=== PATIENT | male | born 1950 | race Caucasian/White ===

== ENCOUNTER 2019-07-01 12:09 | Inpatient (IN) ==
--- NOTE | 2019-07-01 12:26 | Emergency Department Note ---
Disposition Clinical Impression: Multifocal pneumonia Disposition: Admitted As Inpatient Condition: Fair Time of Disposition: 16:07 General Adult HPI - General Chief complaint: ED GI Bleed Stated complaint: Coughing up blood Time Seen by Provider: 07/01/19 12:24 Source: patient Limitations: no limitations Nursing Notes Reviewed: Yes Vital Signs Reviewed: Yes - History of Present Illness HPI Narrative: Mr. Pineda is a 69yo male with a history of COPD, CAD and aortic stenosis that presents from his PCP's office with hemoptysis for 2 days. Patient was found to have a oxygen saturation of 87% while at his PCP's office so he was sent here. Patient states that he has had a productive cough intermittently for the past few weeks that started with white sputum but has progressed to blood the last 24 hours. Patient currently not short of breath but feels pain in his chest with each cough. Patient states that he had PCI 2 weeks ago with plans for another stent in the coming weeks. Since surgery patient has remained on plavix, ASA and Xarelto. No history of car rides, history of DVT/PE, cancer, incarceration or HIV. Patient has home pulse ox and states that he lives between 88-93%. He states that he doesn't feel anymore short of breath than normal and has used his Spiriva, albuterol nubulizers per usual today. Pain Scale: 10 - Related Data Home Medications Medication Instructions Recorded Confirmed Albuterol Sulfate [Proair Hfa] 1 puff IH Q4H PRN 01/28/19 06/08/19 Aspirin [Lo-Dose Aspirin EC] 81 mg PO QAM 01/28/19 06/08/19 Budesonide/Formoterol 160/4.5 2 puff IH BIDR 01/28/19 06/08/19 [Symbicort 160/4.5] Carvedilol [Coreg] 25 mg PO BID 01/28/19 06/08/19 Cholecalciferol (Vitamin D3) 1,000 unit PO QAM 01/28/19 06/08/19 [Vitamin D3] Finasteride [Proscar] 5 mg PO QAM 01/28/19 06/08/19 Folic Acid/Multivit-Min/Lutein 1 each PO QAM 01/28/19 06/08/19 [Adult Multivitamin Gummies] Montelukast [Singulair] 10 mg PO QPM 01/28/19 06/08/19 Nitroglycerin [Nitrostat] 0.4 mg SL Q5MIN 01/28/19 06/08/19 Rivaroxaban [Xarelto] 20 mg PO QPM 01/28/19 06/08/19 Tamsulosin HCl [Flomax] 0.4 mg PO QPM 01/28/19 06/08/19 Tiotropium [place] [Spiriva 2 puff IH QAM 01/28/19 06/08/19 Respimat] Albuterol Neb [Proventil Neb] 2.5 mg IH Q4-6H PRN 06/08/19 06/08/19 Atorvastatin [Lipitor] 60 mg PO QPM 06/08/19 06/08/19 Levothyroxine Sodium 25 mcg PO QAM 06/08/19 06/08/19 Previous Rx's Medication Instructions Recorded Clopidogrel [Plavix] 75 mg PO DAILY #30 tablet 06/08/19 Allergies Allergy/AdvReac Type Severity Reaction Status Date / Time No Known Allergies Allergy Verified 06/07/19 21:00 All systems ED: reviewed and negative except as stated. Review of Systems: As Per HPI Constitutional: Denies: fever, chills Cardiovascular: Reports: chest pain (With cough). Denies: palpitations, dyspnea on exertion Respiratory: Reports: cough, wheezes, hemoptysis. Denies: dyspnea Gastrointestinal: Denies: abdominal pain, nausea, vomiting, diarrhea Genitourinary: Denies: urgency, dysuria Musculoskeletal: Denies: back pain Integumentary: Denies: rash Neurological: Denies: headache, weakness, numbness, paresthesias Endocrine: Denies: fatigue Hematological/Lymphatic: Reports: easy bleeding, easy bruising Past Medical History - Past Medical History Medical history: Reports: atrial fibrillation, COPD, hyperlipidemia, hypertension, myocardial infarction Surgical history: Reports: herniorrhaphy, pacemaker/AICD Psychiatric history: Reports: no psych history - Social History Smoking Status: Former smoker Smokeless Tobacco Status: No Alcohol use: Reports: none Drug use: Reports: none Physical Exam - General Limitations: no limitations General appearance: alert, in no apparent distress - Head Head exam: atraumatic, normocephalic - Eye Eye exam: Present: PERRL, EOMI - ENT ENT exam: mucous membranes moist - Neck Neck exam: Present: normal inspection, full ROM, trachea midline - Chest Chest inspection: Present: normal inspection, symmetric chest wall rise - Respiratory Respiratory exam: Present: wheezes (Patient with diffuse wheezing to the bases bilaterally, a few crackles at the bases bilaterally) - Cardiovascular Cardiovascular exam: Present: regular rate, normal rhythm - Abdominal Exam Abdominal exam: Present: soft, Non-Tender. Absent: tenderness, distention, guarding, rebound - Extremities Exam Extremities exam: Present: normal inspection, full ROM. Absent: tenderness, pedal edema - Expanded Lower Extremity Exam Neurovascular/Tendon exam: Present: normal capillary refill. Absent: pulse deficit, motor deficit, sensory deficit - Neurological Exam Neurological exam: Present: alert, oriented X3 - Psychiatric Psychiatric exam: Present: normal affect - Skin Skin exam: Present: warm, dry, intact, normal color Course Vital Signs Temperature 97.5 F L 07/01/19 12:13 Pulse Rate 78 07/01/19 12:13 Respiratory Rate 18 07/01/19 12:13 Blood Pressure 94/63 07/01/19 12:13 O2 Sat by Pulse Oximetry 91 07/01/19 12:13 Temperature 97.5 F L 07/01/19 12:20 Pulse Rate 71 07/01/19 14:07 Respiratory Rate 20 07/01/19 14:07 Blood Pressure 103/59 07/01/19 14:07 O2 Sat by Pulse Oximetry 95 07/01/19 14:07 Oxygen Delivery Oxygen Delivery Nasal Cannula Medical Decision Making - [facility] Narrative Medical decision making narrative: Patient is a 69-year-old male presenting with cough and hemoptysis. Patient with known history of CAD status post stent [address] Steele, hypertension, hyperlipidemia and COPD. He does wear 2 L of nasal cannula oxygen at night. On initial evaluation, patient was slightly hypoxic on room air at 88%, he was placed on 2 L and has now been satting around 94% while here in the ER. His blood pressure has been relatively stable. He was given a total of 500 mL's of fluid as he has known history of CHF with ICD placement. Given wheezing on examination, initial concern for pneumonia versus COPD exacerbation, patient was given DuoNeb as well as steroids. Following DuoNeb's, patient states that his symptoms have slightly improved but he still feels somewhat tight in his chest. Given concern with multiple risk factors, patient is higher risk for pulmonary edema was up, therefore CTA was performed which shows no sign up on her and was not however does show multifocal airspace disease. Amy sauer was started on vancomycin, Zosyn as well as azithromycin as he has been hospitalized within the past 6 weeks. Laboratory work including CBC, BMP, lactic acid, troponin and BNP were performed and reviewed with patient. BNP is slightly elevated at the 400s, however he has no lower leg swelling. Troponin is within normal limits. EKG shows no acute ischemic changes. Patient will be given at this point in time for multifocal pneumonia as well as increased oxygen requirement. Patient agrees with admission. - Medical Records Medical records reviewed: Yes I reviewed the patient's medical records. - Lab Data Lab results reviewed: Yes I reviewed the patient's lab results. Result diagrams: 07/01/19 12:31 07/01/19 12:31 Lab Results 07/01/19 07/01/19 07/01/19 Range/Units 12:31 12:31 12:31 WBC 7.2 (4.3-11.1) K/mcL RBC 4.53 (4.19-5.50) M/mcL Hgb 12.9 (12.9-16.9) g/dL Hct 40.8 (37.5-50.1) % MCV 90.1 (83.0-100.0) fL MCH 28.5 (28.0-33.3) pg MCHC 31.6 (31.6-35.5) g/dL RDW 14.9 H (11.5-14.5) % Plt Count 165 (140-400) K/mcL MPV 10.3 (9.4-12.4) fL Immature Gran % 0.3 (0-4) % Seg Neutrophils % 73.1 % Lymphocytes % 15.8 % Monocytes % 9.3 % Eosinophils % 1.1 % Basophils % 0.4 % Neutrophils # 5.2 (1.6-8.9) K/mcL Lymphocytes # 1.1 (0.6-4.6) K/mcL Monocytes # 0.7 (0.0-1.3) K/mcL Eosinophils # 0.1 (0.0-0.6) K/mcL Basophils # 0.0 (0.0-0.2) K/mcL PT 28.0 H (9.4-12.1) Seconds INR 2.5 APTT 43.6 H (26.0-36.0) Seconds Sodium 137 (136-145) mEq/L Potassium 4.3 (3.5-5.1) mEq/L Chloride 105 (98-107) mEq/L Carbon Dioxide 24 (23-29) mEq/L BUN 17 (8-23) mg/dL Creatinine 1.24 (0.70-1.30) mg/dL Est GFR ( Amer) > 60 (> 60) Est GFR (Non-Af Amer) 57 L (> 60) BUN/Creatinine Ratio 14 (6-26) Glucose 134 H (70-105) mg/dL Calculated Osmolality 288 (280-300) Lactic Acid (0.5-2.2) mmol/L Calcium 9.2 (8.6-10.3) mg/dL Troponin I < 0.03 (< 0.04) ng/mL B-Natriuretic Peptide (Less than 100) pg/mL Blood Type Antibody Screen 07/01/19 07/01/19 07/01/19 Range/Units 12:31 12:31 12:38 WBC (4.3-11.1) K/mcL RBC (4.19-5.50) M/mcL Hgb (12.9-16.9) g/dL Hct (37.5-50.1) % MCV (83.0-100.0) fL MCH (28.0-33.3) pg MCHC (31.6-35.5) g/dL RDW (11.5-14.5) % Plt Count (140-400) K/mcL MPV (9.4-12.4) fL Immature Gran % (0-4) % Seg Neutrophils % % Lymphocytes % % Monocytes % % Eosinophils % % Basophils % % Neutrophils # (1.6-8.9) K/mcL Lymphocytes # (0.6-4.6) K/mcL Monocytes # (0.0-1.3) K/mcL Eosinophils # (0.0-0.6) K/mcL Basophils # (0.0-0.2) K/mcL PT (9.4-12.1) Seconds INR APTT (26.0-36.0) Seconds Sodium (136-145) mEq/L Potassium (3.5-5.1) mEq/L Chloride (98-107) mEq/L Carbon Dioxide (23-29) mEq/L BUN (8-23) mg/dL Creatinine (0.70-1.30) mg/dL Est GFR ( Amer) (> 60) Est GFR (Non-Af Amer) (> 60) BUN/Creatinine Ratio (6-26) Glucose (70-105) mg/dL Calculated Osmolality (280-300) Lactic Acid 1.7 (0.5-2.2) mmol/L Calcium (8.6-10.3) mg/dL Troponin I (< 0.04) ng/mL B-Natriuretic Peptide 456 H (Less than 100) pg/mL Blood Type B POSITIVE Antibody Screen NEGATIVE - Radiology Data Radiology results reviewed: Yes I reviewed the patient's radiology results. Chest X-Ray 07/01/19 12:47 IMPRESSION: 1. Bibasilar infiltrates, left greater than right, most compatible with pneumonia. 2. Severe emphysema. D/ / Dashawn Kennedy MD / Dashawn Kennedy MD Interpreting Provider: Dashawn Kennedy MD Chest CTA 07/01/19 15:02 IMPRESSION: No gross findings of pulmonary embolism. Patchy multifocal airspace disease, greatest within the left lower lobe, likely reflecting pneumonia. Background emphysema. Trace right pleural effusion. Follow-up to resolution recommended. Atherosclerosis, including coronary artery calcification. D/ / Rodolfo Tucker MD / Rodolfo Tucker MD Interpreting Provider: Rodolfo Tucker MD - EKG Data EKG #1 EKG attestation: Yes I reviewed and interpreted this EKG. EKG results narrative: EKG performed at 2020 ventricular rate of 77, patient with left bundle branch block without ischemic changes, appears unchanged from previous performed in 05/2019
[2019-07-01] MEDS ORDERED: Isovue-370 500 ML BOTTLE IVP ONE (12:30)
[2019-07-01] MEDS ORDERED: Ipratropium/Albuterol Neb 3 ML IH ONE (12:49)
[2019-07-01] MEDS ORDERED: methylPREDNISolone 125 MG/2 ML VIAL IVP ONE (12:50)
[2019-07-01] MEDS ORDERED: 0.9 % Sodium Chloride 500 ML IVC ONE (12:50)
[2019-07-01 13:03] LABS: Basophils % 0.4 %; Eosinophils # 0.1 K/mcL (0.0-0.6); Eosinophils % 1.1 %; Hematocrit 40.8 % (37.5-50.1); Hemoglobin 12.9 g/dL (12.9-16.9); Immature Granulocytes % 0.3 % (0-4); Lymphocytes # 1.1 K/mcL (0.6-4.6); Lymphocytes % 15.8 %; Mean Corpuscular HGB Conc 31.6 g/dL (31.6-35.5); Mean Corpuscular Hemoglobin 28.5 pg (28.0-33.3); Mean Corpuscular Volume 90.1 fL (83.0-100.0); Mean Platelet Volume 10.3 fL (9.4-12.4); Monocytes # 0.7 K/mcL (0.0-1.3); Monocytes % 9.3 %; Neutrophils # 5.2 K/mcL (1.6-8.9); Platelet Count 165 K/mcL (140-400); Red Blood Count 4.53 M/mcL (4.19-5.50); Red Cell Distribution Width 14.9 % (11.5-14.5); Segmented Neutrophils % 73.1 %; White Blood Count 7.2 K/mcL (4.3-11.1)
[2019-07-01 13:08] LABS: INR 2.5
[2019-07-01 13:11] LABS: Activated Partial Thrombo Time 43.6 Seconds (26.0-36.0)
[2019-07-01] MEDS ORDERED: Azithromycin 500 MG in 0.9 % Sodium Chloride 250 ML IVPB ONE (13:34)
[2019-07-01] MEDS ORDERED: Piperacillin/Tazobactam 3.375 GM in 0.9 % Sodium Chloride Mini Bag 100 ML IVPB ONE (13:34)
[2019-07-01 13:37] LABS: Troponin I < 0.03 ng/mL (< 0.04)
--- NOTE | 2019-07-01 14:06 | Electrocardiograph Report ---
[address] [address] Test Date: 2019-07-01 Pat Name: Abel Pineda Department: [id number] Room: Gender: M Center Receptionist: : [id number] Requested By: Sydney Hightower Order Number: [id number] Reading MD: Orlando Mcdonald Measurements Intervals [place] Rate: 77 P: 79 PA: 164 QRS: 71 QRSD: 125 T: -90 QT: 396 QTc: 449 Interpretive Statements Sinus rhythm Left bundle branch block Electronically Signed On 07-01-2019 14:04:11 EDT by Orlando Mcdonald
--- NOTE | 2019-07-01 14:10 | Emergency Department Note ---
Disposition Clinical Impression: Multifocal pneumonia Disposition: Admitted As Inpatient Condition: Fair Time of Disposition: 16:07 General Adult HPI - General Chief complaint: ED GI Bleed Stated complaint: Coughing up blood Time Seen by Provider: 07/01/19 12:24 Source: patient Limitations: no limitations - History of Present Illness Pain Scale: 10 - Related Data Home Medications Medication Instructions Recorded Confirmed Albuterol Sulfate [Proair Hfa] 1 puff IH Q4H PRN 01/28/19 07/01/19 Aspirin [Lo-Dose Aspirin EC] 81 mg PO QAM 01/28/19 07/01/19 Budesonide/Formoterol 160/4.5 2 puff IH BIDR 01/28/19 07/01/19 [Symbicort 160/4.5] Carvedilol [Coreg] 12.5 mg PO BID 01/28/19 07/01/19 Cholecalciferol (Vitamin D3) 1,000 unit PO QAM 01/28/19 07/01/19 [Vitamin D3] Finasteride [Proscar] 5 mg PO QAM 01/28/19 07/01/19 Folic Acid/Multivit-Min/Lutein 1 each PO QAM 01/28/19 07/01/19 [Adult Multivitamin Gummies] Montelukast [Singulair] 10 mg PO QPM 01/28/19 07/01/19 Nitroglycerin [Nitrostat] 0.4 mg SL Q5MIN PRN 01/28/19 07/01/19 Rivaroxaban [Xarelto] 20 mg PO QPM 01/28/19 07/01/19 Tamsulosin HCl [Flomax] 0.4 mg PO QPM 01/28/19 07/01/19 Tiotropium [place] [Spiriva 2 puff IH QAM 01/28/19 07/01/19 Respimat] Albuterol Neb [Proventil Neb] 2.5 mg IH Q4-6H PRN 06/08/19 07/01/19 Atorvastatin [Lipitor] 60 mg PO QPM 06/08/19 07/01/19 Levothyroxine Sodium 25 mcg PO QAM 06/08/19 07/01/19 Previous Rx's Medication Instructions Recorded Clopidogrel [Plavix] 75 mg PO DAILY #30 tablet 06/08/19 Allergies Allergy/AdvReac Type Severity Reaction Status Date / Time No Known Allergies Allergy Verified 06/07/19 21:00 Past Medical History - Past Medical History Medical history: Reports: atrial fibrillation, COPD, hyperlipidemia, hypertension, myocardial infarction Surgical history: Reports: herniorrhaphy, pacemaker/AICD Psychiatric history: Reports: no psych history - Social History Smoking Status: Former smoker Smokeless Tobacco Status: No Alcohol use: Reports: none Drug use: Reports: none Physical Exam - General Limitations: no limitations General appearance: alert Course Vital Signs Temperature 97.5 F L 07/01/19 12:13 Pulse Rate 78 07/01/19 12:13 Respiratory Rate 18 07/01/19 12:13 Blood Pressure 94/63 07/01/19 12:13 O2 Sat by Pulse Oximetry 91 07/01/19 12:13 Temperature 97.5 F L 07/01/19 23:08 Pulse Rate 73 07/01/19 23:08 Respiratory Rate 16 07/01/19 23:08 Blood Pressure 104/62 07/01/19 23:08 O2 Sat by Pulse Oximetry 91 07/01/19 23:08 Oxygen Delivery Oxygen Delivery Nasal Cannula Medical Decision Making - Lab Data Result diagrams: 07/01/19 12:31 07/01/19 12:31 Lab Results 07/01/19 07/01/19 07/01/19 Range/Units 12:31 12:31 12:31 WBC 7.2 (4.3-11.1) K/mcL RBC 4.53 (4.19-5.50) M/mcL Hgb 12.9 (12.9-16.9) g/dL Hct 40.8 (37.5-50.1) % MCV 90.1 (83.0-100.0) fL MCH 28.5 (28.0-33.3) pg MCHC 31.6 (31.6-35.5) g/dL RDW 14.9 H (11.5-14.5) % Plt Count 165 (140-400) K/mcL MPV 10.3 (9.4-12.4) fL Immature Gran % 0.3 (0-4) % Seg Neutrophils % 73.1 % Lymphocytes % 15.8 % Monocytes % 9.3 % Eosinophils % 1.1 % Basophils % 0.4 % Neutrophils # 5.2 (1.6-8.9) K/mcL Lymphocytes # 1.1 (0.6-4.6) K/mcL Monocytes # 0.7 (0.0-1.3) K/mcL Eosinophils # 0.1 (0.0-0.6) K/mcL Basophils # 0.0 (0.0-0.2) K/mcL PT 28.0 H (9.4-12.1) Seconds INR 2.5 APTT 43.6 H (26.0-36.0) Seconds Sodium 137 (136-145) mEq/L Potassium 4.3 (3.5-5.1) mEq/L Chloride 105 (98-107) mEq/L Carbon Dioxide 24 (23-29) mEq/L BUN 17 (8-23) mg/dL Creatinine 1.24 (0.70-1.30) mg/dL Est GFR ( Amer) > 60 (> 60) Est GFR (Non-Af Amer) 57 L (> 60) BUN/Creatinine Ratio 14 (6-26) Glucose 134 H (70-105) mg/dL Calculated Osmolality 288 (280-300) Lactic Acid (0.5-2.2) mmol/L Calcium 9.2 (8.6-10.3) mg/dL Troponin I < 0.03 (< 0.04) ng/mL B-Natriuretic Peptide (Less than 100) pg/mL Blood Type Antibody Screen 07/01/19 07/01/19 07/01/19 Range/Units 12:31 12:31 12:38 WBC (4.3-11.1) K/mcL RBC (4.19-5.50) M/mcL Hgb (12.9-16.9) g/dL Hct (37.5-50.1) % MCV (83.0-100.0) fL MCH (28.0-33.3) pg MCHC (31.6-35.5) g/dL RDW (11.5-14.5) % Plt Count (140-400) K/mcL MPV (9.4-12.4) fL Immature Gran % (0-4) % Seg Neutrophils % % Lymphocytes % % Monocytes % % Eosinophils % % Basophils % % Neutrophils # (1.6-8.9) K/mcL Lymphocytes # (0.6-4.6) K/mcL Monocytes # (0.0-1.3) K/mcL Eosinophils # (0.0-0.6) K/mcL Basophils # (0.0-0.2) K/mcL PT (9.4-12.1) Seconds INR APTT (26.0-36.0) Seconds Sodium (136-145) mEq/L Potassium (3.5-5.1) mEq/L Chloride (98-107) mEq/L Carbon Dioxide (23-29) mEq/L BUN (8-23) mg/dL Creatinine (0.70-1.30) mg/dL Est GFR ( Amer) (> 60) Est GFR (Non-Af Amer) (> 60) BUN/Creatinine Ratio (6-26) Glucose (70-105) mg/dL Calculated Osmolality (280-300) Lactic Acid 1.7 (0.5-2.2) mmol/L Calcium (8.6-10.3) mg/dL Troponin I (< 0.04) ng/mL B-Natriuretic Peptide 456 H (Less than 100) pg/mL Blood Type B POSITIVE Antibody Screen NEGATIVE Attestation Statement - Attestation Attestation: I examined this patient and my medical decision-making was reviewed with the Resident Physician. I agree with the documented findings, disposition and treatment plan as described except to the extent set forth below. Patient 69-year-old gentleman presents to emergency department with chief complaint of cough productive of bloody sputum. Patient states that he has had some increasing shortness of breath and has had a cough that has had blood- tinged sputum. Patient reports that he was seen in his doctor's office and found that he hypoxic and the patient was sent to the emergency department for evaluation. Family patient is awake alert on a nebulizer in the room upon evaluation and patient is saturating 95% while on the nebulizer. Patient has coarse breath sounds bilaterally Chest x-ray shows evidence of infiltrate patient will undergo hemoglobin imaging to evaluate for pulmonary hemorrhage or also pulmonary embolism. Case will discussed with the hospitalist patient be admitted hospital. Patient was started on broad-spectrum antibiotic
[2019-07-01 14:15] LABS: BUN/Creatinine Ratio 14 (6-26); Blood Urea Nitrogen 17 mg/dL (8-23); Calcium 9.2 mg/dL (8.6-10.3); Carbon Dioxide 24 mEq/L (23-29); Chloride 105 mEq/L (98-107); Glucose 134 mg/dL (70-105); Osmolality,Calculated 288 (280-300); Potassium 4.3 mEq/L (3.5-5.1); Sodium 137 mEq/L (136-145); eGFR For African Americans > 60 (> 60); eGFR For Non-African Americans 57 (> 60)
--- NOTE | 2019-07-01 17:57 | Event Note ---
Date of Encounter: 07/01/19 Time of Encounter: 17:30 I examined this patient and my medical decision-making was reviewed with the Resident Physician on 07/01/19. I agree with the documented findings, disposition and treatment plan as described except to the extent set forth below. Mr Pineda is a 69 y/o male with recent cardiac stent and aortic stenosis presented with cough and hemoptysis. He has been found to have CT showing multifocal pneumonia. No fever or chills. No CP. No SOB but oxygen levels dropped earlier. At this time he is feeling more comfortable. Exam Alert. Comfortable. NC. EOMI. Mucus membranes dry. Heart reg - very distant. No wheeze Abd soft and nontender No edema Moves all extremities. No rash. I/P 1. Hemoptysis - most likely related to multifocal pneumonia. Treat symptomatically Pulm consult. NPO midnight if anticipate bronch 2. Multifocal pneumonia - hospitalized recently. Procalcitonin pending. IV abx ordered. Viral versus gram negative 3. CAD s/p stent - hold plavix for a day 4. Parox a fib - hold xarelto for now. 5. Aortic stenosis Further diagnoses and plan as per H&P of this date.
--- NOTE | 2019-07-01 18:38 | Internal Med History&Physical ---
<Jose Francisco Barreto S - Last Filed: 07/01/19 18:32> Date of Encounter: 07/01/19 Time of Encounter: 18:32 Internal Medicine - H&P: HPI Admitted From: Emergency Dept Plans for Post Hospital Care: Home History of present illness: Mr. Pineda is a 69 year old male with a past medical history significant for CAD, VA 2 in the , stent 2 weeks ago, emphysema, BPH, who is being admitted to our service with chief complaint of hemoptysis 2 days He states that he began having dyspnea on Monday, which worsened Monday to include a cough. He states that the cough Monday started to show streaks of red, notes that he was coughing hard enough that he has pain at the inferior border of his ribs. Patient states that Monday, the cough seemed to ease up a bit, but the sputum went from streaked with blood to bright red blood. He report s two episodes of hemoptysis yesterday, and three episodes today, each consisting of more than a teaspoon but less than a tablespoon of bright red bloody sputum. The patient underwent PCI with stent placement 2 weeks ago and was started on Plavix at that time. He reports significantly improvement in his breathing since his most recent stent placement. He was supposed to be scheduled for another s tent placement sometime this week, with eventual plans for TAVR at [facility] to be scheduled after the second stent. He had heart attacks in and , quit smoking after the , He is currently taking aspirin, Plavix and Xarelto. At this time, patient denies any chest pain, dyspnea, dizziness, l ightheadedness, nausea, vomiting, black stool, bloody stool, diarrhea, constipation, numbness/tingling/weakness anywhere, blurry vision, double vision, trouble swallowing or speaking Patient reports ongoing cough productive of grossly red sputum. Past Med Surg Social Fam HX - Past Medical History Medical history: atrial fibrillation, COPD, hyperlipidemia, hypertension, myocardial infarction Additional medical history: actinic keratosis, large squamous cell carcinoma, VA, defibrillator, enlarged prostate, emphysema. Psychiatric history: no psych history - Past Surgical History Surgical History: herniorrhaphy, pacemaker/AICD Additional surgical history: vasectomy, stent - Social History Smoking Status: Former smoker Smokeless Tobacco Status: No Alcohol use: none Drug use: none - Family History Mother Hx Family Cardiac Disorders: Yes (VA) Internal Medicine - H&P: Meds Albuterol Sulfate [Proair Hfa] 2 puff IH Q4H PRN 01/28/19 [History] Aspirin [Lo-Dose Aspirin EC] 81 mg PO QAM 01/28/19 [History] Budesonide/Formoterol 160/4.5 [Symbicort 160/4.5] 2 puff IH BIDR 01/28/19 [History] Cholecalciferol (Vitamin D3) [Vitamin D3] 1,000 unit PO QAM 01/28/19 [History] Finasteride [Proscar] 5 mg PO QAM 01/28/19 [History] Folic Acid/Multivit-Min/Lutein [Adult Multivitamin Gummies] 1 each PO QAM 01/28/19 [History] Montelukast [Singulair] 10 mg PO QPM 01/28/19 [History] Nitroglycerin [Nitrostat] 0.4 mg SL Q5MIN PRN 01/28/19 [History] Rivaroxaban [Xarelto] 20 mg PO QPM 01/28/19 [History] Tamsulosin HCl [Flomax] 0.4 mg PO QPM 01/28/19 [History] Tiotropium [place] [Spiriva Respimat] 2 puff IH QAM 01/28/19 [History] Albuterol Neb [Proventil Neb] 2.5 mg IH Q4-6H PRN 06/08/19 [History] Atorvastatin [Lipitor] 60 mg PO QPM 06/08/19 [History] Clopidogrel [Plavix] 75 mg PO DAILY #30 tablet 06/08/19 [Rx] Levothyroxine Sodium 25 mcg PO QAM 06/08/19 [History] Carvedilol 12.5 mg PO BID 07/02/19 [History] Allergy/AdvReac Type Severity Reaction Status Date / Time No Known Allergies Allergy Verified 06/07/19 21:00 All Systems PM: A 10-system review of systems was performed and is negative for pertinent findings except as documented above in the HPI. Review of systems: Per history of present illness - Constitutional Vitals: Temp Pulse Resp BP Pulse Ox 98.0 F 78 15 100/69 95 07/01/19 17:05 07/01/19 17:05 07/01/19 17:05 07/01/19 17:05 07/01/19 17:05 Exam: Gen: Awake and alert, no acute distress, well-nourished, well kempt, at bedside. both are pleasant and conversive. Head: Normocephalic, atraumatic Eyes: EOMI, no scleral icterus ENT: Mucous membranes moist, no oropharyngeal erythema, significant hallitosis noted. Abd: Soft, nontender to palpation, nondistended, no rebound or guarding. EXT: Grossly intact motor strength in all 4 extremities, no lower extremity edema, no distal cyanosis or pallor Skin: Warm, dry, intact, no rashes or lesions noted Neuro: Cranial nerves II-XII grossly intact, no focal nurologic deficits Psych: normal mood and affect, Answers questions with intact judgement, appropriate insight, and linear thought CV: S1-S2 present, regular at a rate of approximately 80, 1/6 systolic murmur seemingly intermittently present, no rubs or gallops appreciated. Pacemaker/defibrillator in place sub-q inferior to the L clavicle. Pulm: Coarse breath sounds in the R base, Decreased air movement in all other linda. Faint wheezes appreciated at bilateral bases. Hyperpnea without tachypnea, no respiratory distress, very mildly increased work of breathing Internal Med - H&P Results - Labs CBC & Chem 7: 07/01/19 12:31 07/01/19 12:31 Labs: Short CBC 07/01/19 Range/Units 12:31 WBC 7.2 (4.3-11.1) K/mcL Hgb 12.9 (12.9-16.9) g/dL Hct 40.8 (37.5-50.1) % Plt Count 165 (140-400) K/mcL Neutrophils # 5.2 (1.6-8.9) K/mcL BMP 07/01/19 12:31 Sodium 137 Potassium 4.3 Chloride 105 Carbon Dioxide 24 BUN 17 Creatinine 1.24 Glucose 134 H Calcium 9.2 Cardiac Enzymes 07/01/19 Range/Units 12:31 Troponin I < 0.03 (< 0.04) ng/mL - Impressions ITS Impressions Chest X-Ray 07/01/19 12:47 IMPRESSION: 1. Bibasilar infiltrates, left greater than right, most compatible with pneumonia. 2. Severe emphysema. D/ / Dashawn Kennedy MD / Dashawn Kennedy MD Interpreting Provider: Dashawn Kennedy MD Chest CTA 07/01/19 15:02 IMPRESSION: No gross findings of pulmonary embolism. Patchy multifocal airspace disease, greatest within the left lower lobe, likely reflecting pneumonia. Background emphysema. Trace right pleural effusion. Follow-up to resolution recommended. Atherosclerosis, including coronary artery calcification. D/ / Rodolfo Tucker MD / Rodolfo Tucker MD Interpreting Provider: Rodolfo Tucker MD - Assessment and Plan (1) Multifocal pneumonia Current Visit: Yes Status: Acute Assessment and plan: CXR shows increased hazy opacities bilateral bases compared to prior, with severe emhpysema CT chest shows patchy airspace disease bilateral bases, with L>R, Likely pneumon ia, with underlying severe emphysema CTA chest shows no evidence of PE Physical exam findings consistent with Pneumonia with underlying emphysema Patient without elevated white count Procalcitonin elevated at 0.19 BNP elevated at 456, not likely to represent CHF PTT elevated at 43.6, patient on Xarelto at home since 1997 for A-Fib INR elevated at 2.5, NOT taking Coumadin * Given hemoptysis, underlying emphysema, and history of tobacco use, neoplastic process is unlikely, but remains on the Ddx. * Elevated pro-Jairo increases his likelihood of bacterial pneumonia * Robitussin and codeine for cough * Pulmonary consult * Nothing by mouth * Will hold Xarelto * Continue Asa/Plavix, as risk of stent thrombosis is significant. * Continue IV Vancomycin and Zosyn. Pt's PCP: Genoveva Holt in [place] Pt's Real Estate Rental Agent: Harshad Steele (2) CAD (coronary artery disease) Current Visit: No Status: Acute Assessment and plan: Patient is status-post stent placement 2 weeks ago, with other known coronary artery stenoses in need of stenting. Real Estate Rental Agent is Dr Steele Patient is also known to have aortic valve stenosis, TAVR planned in the future. Patient has been taking aspirin since 1990 Patient was started on Plavix 2 weeks ago after stent placement Patient is also taking Xarelto for A. fib * Elevated risk of stent thrombosis, in the context of low volume hemoptysis, makes continuation of aspirin and Plavix necessary at this time * Continue to monitor for increased volume of hemoptysis, consider holding aspir in and Plavix in conjunction with input from pulmonology and cardiology if this were to occur Qualifiers: Coronary Disease-Associated Artery/Lesion type: [place] artery [place] vs. transplanted heart: [place] heart Associated angina: with unstable angina Qualified Code(s): I25.110 - Atherosclerotic heart disease of [place] coronary artery with unstable angina pectoris (3) A-fib Current Visit: Yes Status: Chronic Assessment and plan: Patient is status post pacemaker/defibrillator placement Patient has been stable on xarelto since 1997 Patient also taking Coreg * Given chief complaint of hemoptysis, hold Xarelto * Continue patient's home Coreg Qualifiers: Atrial fibrillation type: chronic Qualified Code(s): I48.2 - Chronic atrial fibrillation - Summary of Assessment and Plan Summary of Assessment and Plan: * Continue aspirin and Plavix * Monitor frequency and volume of hemoptysis * Hold Xarelto, continue Coreg * Robitussin with codeine Q6 PRN for cough * Continue IV vancomycin and Zosyn * 60 mg Solu-Medrol BID * Pulmonology consulted - Time Spent With Patient Total time spent is greater than 50% in coordination of care (as documented) at patient's floor/unit and/or counseling patient: <Bebeto Velasco - Last Filed: 07/02/19 18:45> Date of Encounter: 07/01/19 Internal Medicine - H&P: HPI History of present illness: Mr. Pineda is a 69 year old male All Systems PM: A 10-system review of systems was performed and is negative for pertinent findings except as documented above in the HPI. - Constitutional Vitals: Temp Pulse Resp BP Pulse Ox 98.4 F 79 16 124/77 93 07/02/19 15:05 07/02/19 15:05 07/02/19 15:05 07/02/19 15:05 07/02/19 15:05 Internal Med - H&P Results - Labs CBC & Chem 7: 07/02/19 08:37 09/17/19 08:37 Labs: Short CBC 07/02/19 Range/Units 08:37 WBC 6.9 (4.3-11.1) K/mcL Hgb 12.7 L (12.9-16.9) g/dL Hct 38.4 (37.5-50.1) % Plt Count 176 (140-400) K/mcL Neutrophils # 6.1 (1.6-8.9) K/mcL BMP 07/02/19 08:37 Sodium 137 Potassium 4.0 Chloride 107 Carbon Dioxide 20 L BUN 15 Creatinine 0.85 Glucose 159 H Calcium 8.6 Urine 07/01/19 Range/Units 18:54 Urine Color Yellow (Yellow) Urine Clarity Clear (Clear) Urine pH 6.0 (5.0-8.0) pH Units Ur Specific [place] 1.015 (1.010-1.025) Urine Protein Trace (Neg-Trace) mg/dL Urine Glucose (UA) Normal (Normal) mg/dL - Impressions ITS Impressions Chest X-Ray 07/01/19 12:47 IMPRESSION: 1. Bibasilar infiltrates, left greater than right, most compatible with pneumonia. 2. Severe emphysema. D/ / Dashawn Kennedy MD / Dashawn Kennedy MD Interpreting Provider: Dashawn Kennedy MD Chest CTA 07/01/19 15:02 IMPRESSION: No gross findings of pulmonary embolism. Patchy multifocal airspace disease, greatest within the left lower lobe, likely reflecting pneumonia. Background emphysema. Trace right pleural effusion. Follow-up to resolution recommended. Atherosclerosis, including coronary artery calcification. D/ / Rodolfo Tucker MD / Rodolfo Tucker MD Interpreting Provider: Rodolfo Tucker MD - Assessment and Plan (1) Hemoptysis Current Visit: Yes Status: Acute (2) Pneumonia Current Visit: Yes Status: Suspected Qualifiers: Pneumonia type: aspiration pneumonia Aspiration pneumonia type: unspecified Laterality: unspecified laterality Lung location: unspecified part of lung Qualified Code(s): J69.0 - Pneumonitis due to inhalation of food and vomit (3) A-fib Current Visit: Yes Status: Chronic Qualifiers: Atrial fibrillation type: chronic Qualified Code(s): I48.2 - Chronic atrial fibrillation (4) CAD (coronary artery disease) Current Visit: No Status: Acute Qualifiers: Coronary Disease-Associated Artery/Lesion type: [place] artery [place] vs. transplanted heart: [place] heart Associated angina: without angina Qualified Code(s): I25.10 - Atherosclerotic heart disease of [place] coronary artery without angina pectoris (5) Aortic stenosis Current Visit: No Status: Chronic Qualifiers: Cardiac valve disease etiology: etiology unspecified Qualified Code(s): I35.0 - Nonrheumatic aortic (valve) stenosis - Time Spent With Patient Total time spent is greater than 50% in coordination of care (as documented) at patient's floor/unit and/or counseling patient: - Attending Attestation Please see event note of this date.
[2019-07-01] MEDS ORDERED: GuaiFENesin/Codeine Oral Soln 5 ML UDC PO PRN (18:53)
[2019-07-01 19:47] LABS: Bilirubin,Urine Negative (Negative); Blood,Urine Negative (Negative); Clarity,Urine Clear (Clear); Color,Urine Yellow (Yellow); Glucose,Urine (UA) Normal (Normal); Ketones,Urine Negative (Negative); Leukocyte Esterase,Urine Negative (Negative); Nitrite,Urine Negative (Negative); Protein,Urine Trace mg/dL (Neg-Trace); Specific Gravity,Urine 1.015 (1.010-1.025); Urobilinogen,Urine Normal (Normal)
[2019-07-02] MEDS: methylPREDNISolone 125 MG/2 ML VIAL IVP SCH ×2 (05:48→16:51)
--- NOTE | 2019-07-02 07:56 | Internal Med Progress Note ---
<Kevin Fairchild - Last Filed: 07/02/19 14:04> Hospitalist Progress Note - Encounter Date of Encounter: 07/02/19 Time of Encounter: 07:56 - Subjective Interval History: Mr. Pineda is a 69 y/o M who presented to the ED on 07/02 with hemoptysis and possible pneumonia. He states the coughing has been ongoing since 06/29 and he is coughing up 3-4 bloody sputum samples daily. Currently he states that his pain only occurs when he has "deep coughs" and he produces bloody sputum during these episodes. He describes the pain as sharp and along the bottom border of his ribs, today he had an episode of what he described as heartburn that was relieved after he coughed. He complains of wheezing, coughing, and pain during his coughing spells. Pt. denies SOB, lightheadedness, headache, fever/chills, nausea/vomiting, decreased strength/sensation, palpitations, orthopnea, and no problems with urination/BM. - Exam Vitals: Temp Pulse Resp BP Pulse Ox 97.7 F 73 16 113/69 93 07/02/19 07:35 07/02/19 07:35 07/02/19 07:35 07/02/19 07:35 07/02/19 07:35 Exam: General: AOx3, no acute distress, pleasant affect Head: Atraumatic, normocephalic Skin: Dry and warm, no rash, no lesions. Cardiovascular: Heart sounds faint, S1 & S2, no m/r/g Lungs: B/l wheezing throughout, faint crackles lower left lung, breath sounds decreased throughout Abdomen: distended, non-tender, bowel sounds present Extremities: No edema, muscle strength and sensation intact Neurological: No focal deficits, cooperative with examination Pulses: Intact and regular on all 4 extremities Rest of the physical exam is non contributory. - Assessment and Plan (1) Multifocal pneumonia Current Visit: Yes Status: Acute Assessment and Plan: Patient presented on 07/01 with 4 days of hemoptysis and lower chest pain with coughing. CXR in ED on 07/01 showed bilateral opacities in lung bases with chronic emphysema CT of the chest showed likely pneumonia greater at the left lung base than the right, no evidence of PE. Physical exam findings consistent for pneumonia, patient presented with normal wbc and procalcitonin of 1.9. Pt. is on ASA, Plavix, and Xarelto for multiple heart stents and a.fib, possibly adding to the hemoptysis. Pulmonary evaluation on 07/02 suggested pneumonia likely with hemoptysis due to anticoagulation therapy, pulm will continue to follow patient and perform bronchoscopy if hemoptysis does not improve. Currently on IV Vancomycin and Zosyn for pneumonia, plan to de-escalate antibiotics when cultures return. Robitussin and codine given for cough, patient states much improvement from 07/01. Continue to give ASA and Plavix due to high risk of stent thrombosis, will hold Xarelto. (2) CAD (coronary artery disease) Current Visit: No Status: Acute Assessment and Plan: Patient has PMHx of multiple CA, aortic valve stenosis, and multiple stent placement; follows Dr. Steele at [facility]. Most recent stent placement was 06/07/19 and has more planned in 2 weeks; TAVR placement at [facility] in future. Patient is being treated with ASA, Plavix, and Xarelto for atrial fibrilation. Due to hemoptysis Xarelto will be held, patient continued on ASA and plavix due to high risk of stent thrombosis Pulmonary evaluation on 07/02 suggested monitor patient and perform bronchoscopy if hemoptysis continues. (3) A-fib Current Visit: Yes Status: Chronic Assessment and Plan: Continuation of ASA and Plavix for stent thrombosis prohylaxis. Will hold patients Xarelto due to hemoptysis. Patient will continue home Coreg. - Time Spent with Patient Total time spent is greater than 50% in coordination of care (as documented) at patient's floor/unit and/or counseling patient: Internal Medicine: Result - Labs CBC & Chem 7: 07/02/19 08:37 07/02/19 08:37 Labs: Short CBC 07/01/19 Range/Units 12:31 WBC 7.2 (4.3-11.1) K/mcL Hgb 12.9 (12.9-16.9) g/dL Hct 40.8 (37.5-50.1) % Plt Count 165 (140-400) K/mcL Neutrophils # 5.2 (1.6-8.9) K/mcL BMP 07/01/19 12:31 Sodium 137 Potassium 4.3 Chloride 105 Carbon Dioxide 24 BUN 17 Creatinine 1.24 Glucose 134 H Calcium 9.2 Cardiac Enzymes 07/01/19 Range/Units 12:31 Troponin I < 0.03 (< 0.04) ng/mL Urine 07/01/19 Range/Units 18:54 Urine Color Yellow (Yellow) Urine Clarity Clear (Clear) Urine pH 6.0 (5.0-8.0) pH Units Ur Specific [place] 1.015 (1.010-1.025) Urine Protein Trace (Neg-Trace) mg/dL Urine Glucose (UA) Normal (Normal) mg/dL - ABG Interpretation ABG results: PT/INR, D-dimer PT 28.0 Seconds (9.4-12.1) H 07/01/19 12:31 - Impressions Impressions Chest X-Ray 07/01/19 12:47 IMPRESSION: 1. Bibasilar infiltrates, left greater than right, most compatible with pneumonia. 2. Severe emphysema. D/ / Dashawn Kennedy MD / Dashawn Kennedy MD Interpreting Provider: Dashawn Kennedy MD Chest CTA 07/01/19 15:02 IMPRESSION: No gross findings of pulmonary embolism. Patchy multifocal airspace disease, greatest within the left lower lobe, likely reflecting pneumonia. Background emphysema. Trace right pleural effusion. Follow-up to resolution recommended. Atherosclerosis, including coronary artery calcification. D/ / Rodolfo Tucker MD / Rodolfo Tucker MD Interpreting Provider: Rodolfo Tucker MD Consult Discharge Plan - Plan Referrals: Genoveva Holt, XEROX MACHINE OPERATOR [Primary Care Provider] - <Bebeto Velasco - Last Filed: 07/02/19 17:04> Hospitalist Progress Note - Encounter Date of Encounter: 07/02/19 - Exam Vitals: Temp Pulse Resp BP Pulse Ox 98.4 F 79 16 124/77 93 07/02/19 15:05 07/02/19 15:05 07/02/19 15:05 07/02/19 15:05 09/17/19 15:05 - Assessment and Plan (1) Hemoptysis Current Visit: Yes Status: Acute (2) Pneumonia Current Visit: Yes Status: Suspected (3) A-fib Current Visit: Yes Status: Chronic (4) CAD (coronary artery disease) Current Visit: No Status: Acute (5) Aortic stenosis Current Visit: No Status: Chronic - Time Spent with Patient Total time spent is greater than 50% in coordination of care (as documented) at patient's floor/unit and/or counseling patient: Internal Medicine: Result - Labs CBC & Chem 7: 07/02/19 08:37 07/02/19 08:37 Labs: Short CBC 07/02/19 Range/Units 08:37 WBC 6.9 (4.3-11.1) K/mcL Hgb 12.7 L (12.9-16.9) g/dL Hct 38.4 (37.5-50.1) % Plt Count 176 (140-400) K/mcL Neutrophils # 6.1 (1.6-8.9) K/mcL BMP 07/02/19 08:37 Sodium 137 Potassium 4.0 Chloride 107 Carbon Dioxide 20 L BUN 15 Creatinine 0.85 Glucose 159 H Calcium 8.6 Urine 07/01/19 Range/Units 18:54 Urine Color Yellow (Yellow) Urine Clarity Clear (Clear) Urine pH 6.0 (5.0-8.0) pH Units Ur Specific [place] 1.015 (1.010-1.025) Urine Protein Trace (Neg-Trace) mg/dL Urine Glucose (UA) Normal (Normal) mg/dL - ABG Interpretation ABG results: PT/INR, D-dimer PT 28.0 Seconds (9.4-12.1) H 07/01/19 12:31 - Attending Attestation The history, physical exam, and medical decision making was performed by the medical student either while I was physically present and actively involved or I personally re-performed the exam and medical decision making. I have verified the accuracy of the medical student's documentation with regards to the history, physical exam findings, and medical decision making on 07/02/19. Mr Pineda is currently hospitalized for acute hemoptysis and presumed pneumonia. He remains moderate to high risk due to potential for worsening clinical status. Mr Pineda feels OK. He is still having some dark blood in sputum. No fever or chills. No CP. Less cough today. Exam Alert. Comfortable Mucus membranes dry. EOMI. NC Neck supple Heart reg and not tachy. No wheeze Abd soft. No edema. Moves all extremities. No rash. I/P 1. Hemoptysis - persists but not increasing. NPO midnight. 2. Recent stent - still on Plavix 3. A fib - Xarelto held Further diagnoses and plan as above. <Kevin Fairchild - Last Filed: 07/02/19 14:04> (2) CAD (coronary artery disease) Qualifiers: Coronary Disease-Associated Artery/Lesion type: [place] artery [place] vs. transplanted heart: [place] heart Associated angina: with unstable angina Qualified Code(s): I25.110 - Atherosclerotic heart disease of [place] coronary artery with unstable angina pectoris (3) A-fib Qualifiers: Atrial fibrillation type: chronic Qualified Code(s): I48.2 - Chronic atrial fibrillation <Bebeto Velasco A - Last Filed: 07/02/19 17:04> (2) Pneumonia Qualifiers: Pneumonia type: aspiration pneumonia Aspiration pneumonia type: unspecified Laterality: unspecified laterality Lung location: unspecified part of lung [place] lified Code(s): J69.0 - Pneumonitis due to inhalation of food and vomit (3) A-fib Qualifiers: Atrial fibrillation type: chronic Qualified Code(s): I48.2 - Chronic atrial fibrillation (4) CAD (coronary artery disease) Qualifiers: Coronary Disease-Associated Artery/Lesion type: [place] artery [place] vs. transplanted heart: [place] heart Associated angina: without angina Qualified Code(s): I25.10 - Atherosclerotic heart disease of [place] coronary artery without angina pectoris (5) Aortic stenosis Qualifiers: Cardiac valve disease etiology: etiology unspecified Qualified Code(s): I35.0 - Nonrheumatic aortic (valve) stenosis
[2019-07-02] MEDS: Piperacillin/Tazobactam 3.375 GM in 0.9 % Sodium Chloride Mini Bag 100 ML IVPB SCH ×3 (09:00→23:42)
[2019-07-02] MEDS: Aspirin 81 MG TAB.CHEW PO SCH (09:00)
--- NOTE | 2019-07-02 09:05 | Pulmonology Consult Note ---
<Jostin Arrieta W - Last Filed: 07/02/19 11:15> Date of Encounter: 07/02/19 Medications and Allergies Albuterol Sulfate [Proair Hfa] 2 puff IH Q4H PRN 01/28/19 [History] Aspirin [Lo-Dose Aspirin EC] 81 mg PO QAM 01/28/19 [History] Budesonide/Formoterol 160/4.5 [Symbicort 160/4.5] 2 puff IH BIDR 01/28/19 [History] Cholecalciferol (Vitamin D3) [Vitamin D3] 1,000 unit PO QAM 01/28/19 [History] Finasteride [Proscar] 5 mg PO QAM 01/28/19 [History] Folic Acid/Multivit-Min/Lutein [Adult Multivitamin Gummies] 1 each PO QAM 01/28/19 [History] Montelukast [Singulair] 10 mg PO QPM 01/28/19 [History] Nitroglycerin [Nitrostat] 0.4 mg SL Q5MIN PRN 01/28/19 [History] Rivaroxaban [Xarelto] 20 mg PO QPM 01/28/19 [History] Tamsulosin HCl [Flomax] 0.4 mg PO QPM 01/28/19 [History] Tiotropium [place] [Spiriva Respimat] 2 puff IH QAM 01/28/19 [History] Albuterol Neb [Proventil Neb] 2.5 mg IH Q4-6H PRN 06/08/19 [History] Atorvastatin [Lipitor] 60 mg PO QPM 06/08/19 [History] Clopidogrel [Plavix] 75 mg PO DAILY #30 tablet 06/08/19 [Rx] Levothyroxine Sodium 25 mcg PO QAM 06/08/19 [History] Carvedilol 12.5 mg PO BID 07/02/19 [History] Allergy/AdvReac Type Severity Reaction Status Date / Time No Known Allergies Allergy Verified 06/07/19 21:00 All Systems: The remainder of the systems were reviewed and are negative Physical Examination Vital Signs: Vital Signs, Last 4 Hours Temp Pulse Resp BP Pulse Ox 07/02/19 07:35 97.7 F 73 16 113/69 93 Results - Laboratory Findings CBC and BMP: 07/02/19 08:37 07/02/19 08:37 PT/INR, D-dimer PT 28.0 Seconds (9.4-12.1) H 07/01/19 12:31 Abnormal lab findings: Abnormal lab results Hgb 12.7 g/dL (12.9-16.9) L 07/02/19 08:37 RDW 14.9 % (11.5-14.5) H 07/01/19 12:31 PT 28.0 Seconds (9.4-12.1) H 07/01/19 12:31 APTT 43.6 Seconds (26.0-36.0) H 07/01/19 12:31 Carbon Dioxide 20 mEq/L (23-29) L 07/02/19 08:37 Est GFR (Non-Af Amer) 57 (> 60) L 07/01/19 12:31 Glucose 159 mg/dL (70-105) H 07/02/19 08:37 B-Natriuretic Peptide 456 pg/mL (Less than 100) H 07/01/19 12:31 Procalcitonin 0.19 ng/mL (0.00-0.15) H 07/01/19 17:23 - Microbiology Findings Microbiology Findings: Microbiology, Last 48 Hours 07/01/19 13:52 Blood Culture - Preliminary Peripheral Venipuncture Culture is incubating and being continuously monitored for growth. Final report to follow. 07/01/19 13:52 Blood Culture - Preliminary Peripheral Venipuncture Culture is incubating and being continuously monitored for growth. Final report to follow. - Clinical Findings Intake & Output: Intake & Output 07/01/19 07/02/19 07/02/19 23:59 07:59 15:59 Intake Total 570 / 1420 Output Total 550 / 550 300 / 300 Balance 20 / 870 -300 / -300 Weight 84.9 kg 86.4 kg Consult Discharge Plan - Plan Referrals: Genoveva Holt, ELECTRICAL SIGN WIRER HELPER [Primary Care Provider] - - Attending Attestation I examined this patient and my medical decision-making was reviewed with the Resident Physician. I agree with the documented findings, disposition and treatment plan as described except to the extent set forth below. We independently had [id number] contact with the patient Patient seen and examined at bedside Labs, radiology, chart personally reviewed. Impression/Recs: Minor Hemoptysis PNA COPD with Acute Exacerbation Recent LHC with PCI Chronic Aortic Stenosis I evaluated Mr. Pineda in his room today where he has had a few episodes of teaspoon of dark reddish blood early this morning but nothing since. In total there appears to be about 5 mL of darkish blood mixed with phlegm. He says he is feeling much better since admission to the hospital and this is without oxygen requirement. I suspect that his hemoptysis is secondary to pneumonia based upon a CT scan complicated by the fact that he is on a DOAC and Plavix with underlying structural lung disease from advanced emphysema. He appears to be improving and I would recommend conservative management at this time including IV steroids for the next 24 hours antibiotics cough suppression. If further episodes of hemoptysis we will proceed with bronchoscopy please keep nothing by mouth until I evaluate the patient this afternoon. If situation is improving recommend restarting Plavix given recent PCI and high risk for stent thrombosis. <Caleb Murillo M - Last Filed: 07/02/19 15:38> Date of Encounter: 07/02/19 Time of Encounter: 09:00 Assessment and Plan (1) Pneumonia Current Visit: Yes Status: Acute Patient presents with several day history of progressively worsening cough with increasing sputum production Patient did have recent hospitalization roughly 2 wks ago for stent placement Denies Fevers/Chills, admits to mild dyspnea mostly on exertion and now hemoptysis starting roughly 48 hrs ago Patient was noted to be hypoxic in the ED at 88% on RA, according to patient this is his baseline CTA revealed multifocal airspace disease consistent with diagnosis of PNA Procalcitonin was elevated at 0.19 but WBC normal Plan: -Continue ABX for HAP -NPO midnight for Bronch tomorrow with BAL -F/U blood cultures -Continue cough suppressant and supplement O2 as needed Qualifiers: Aspiration pneumonia type: unspecified Laterality: unspecified laterality Lung location: unspecified part of lung Qualified Code(s): J69.0 - Pneumonitis due to inhalation of food and vomit (2) Hemoptysis Current Visit: Yes Status: Acute Patient does have roughly 48hr history of mild hemoptysis Patient reports 3 episodes of bright red bloody hemoptysis prior to admission Total output today is roughly 10mL of dark red blood mixed with mucous Patient does take DOAC for AFIB and DAPT for recent Stent, these have been held since admission 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, 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 Total smoking history of roughly 35 pack years, quit in 1994 after ND Patient has baseline structural lung disease with Severe COPD and Asthma overlap Last CT Chest performed in December did not reveal evidence of neoplasm Etiology of Hemoptysis likely 2/2 Multifocal PNA as demonstrated on CT Chest 07/01/19 in setting of DAPT/DOAC Less likely neoplastic process but still significant risk given severe emp hasema/Tobacco Abuse/Occupational Exposures Plavix and Xarelto have been held and patient has been made NPO in anticipation of possible bronch Plan: -Will Procede with Bronchoscopy tomorrow -Restart Plavix d/t significant risk for stent thrombosis -continue to hold xarelto at this time -continue cough suppressants -Treat underlying COPD Exacerbation, plan below (3) COPD exacerbation Current Visit: Yes Status: Acute Patient has history of COPD, Severe Appears to be in acute exacerbation Increased sputum production with cough + wheeze on exam Compliant with home inhalers 2L O2 PRN/HS at home Patient does not endorse dyspnea at this time Plan: -Azithromycin for Anti-Inflammatory effect +Atypical coverage -Continue IV steroids for 24 hrs -Supplement O2 as needed -Continue bronchodilators (4) Occupational exposure to air contaminants Current Visit: Yes Status: Acute Agent [place] in addition to 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 Pineda is a 69-year-old male with a past medical history CAD, ND x 2 with recent PCI (2wks ago) and severe COPD who is currently admitted to the hospital for hemoptysis. Pulmonology has been consulted for recommendations regarding further management and possible bronchoscopy. The patient states that he began having dyspnea on 06/28/19 which worsened over the following 24 hours. During that interval time the patient did begin to develop a cough productive of clear sputum that subsequently turned into red tin ged mucus with worsening cough and associated musculoskeletal rib pain secondary to cough. The blood-tinged mucus progressed over the following 24 hours to bright red blood. Patient reported 3 episodes of roughly teaspoon sized bright red bloody sputum on day of admission. Today patient reports roughly 6 episodes of bright red bloody sputum total volume roughly 10 mL. He is currently on DAPT for recent PCI and DOAC for AFIB, which have been stopped since admission. The patient does have a significant history of respiratory disease with pulmonary function test revealing severe COPD with retained bronchodilator response indicating asthma overlap. Patient does use 2L O2 PRN/HS. Additionally, patient does have a remote history of Tobacco Abuse, stopping after his 2nd ND in 1994. 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 The patient does follow with [facility] in the outpatient setting and does receive regular lung cancer screening. Most recent CT Chest was in December and was negative for any identifiable neoplasm/nodule. In the ED, patient was afebrile, HR/RR WNL, BP 94/63. Patient was slightly hypoxic at 88% on RA but stated this is his baseline as he has pulse ox at home and checks regularly. Labs revealed normal white count but elevated procalcitonin, 0.19, and BNP 456. On Exam, patient does exhibit significant bibasilar wheezing. No evidence of peripheral edema. EKG negative for acute changes. CTA negative for PE but does reveal patchy multifocal airspace disease, L>R, with background emphysema and trace R Pleural Effusion. Past Med Surg Social Fam HX - Past Medical History Medical history: atrial fibrillation, COPD, hyperlipidemia, hypertension, myocardial infarction Additional medical history: actinic keratosis, large squamous cell carcinoma, ND, defibrillator, enlarged prostate, emphysema. Psychiatric history: no psych history - Past Surgical History Surgical History: herniorrhaphy, pacemaker/AICD Additional surgical history: vasectomy, stent - Social History Smoking Status: Former smoker Smokeless Tobacco Status: No Alcohol use: none Drug use: none - Family History Mother Hx Family Cardiac Disorders: Yes (ND) All Systems: The remainder of the systems were reviewed and are negative Physical Examination Vital Signs: Vital Signs, Last 4 Hours Temp Pulse Resp BP Pulse Ox 07/02/19 07:35 97.7 F 73 16 113/69 93 Gen: Alert, oriented, NAD, vital stable. Head: atruamatic normocephalic Eyes: anicteric sclera, moist conjunctive, EOMI ENT: Mucous Membranes Moist Neck: no JVD, no lymphadenopathy, trachea midline CV: RRR, no murmurs gallops rubs, distant heart sounds though Resp: Wheezing audible mostly in the bilateral bases, no rales or rhonchi, non- labored breathing, diminished sounds in bilateral upper lobes Ext: no peripheral edema, no rashes, no cyanosis or clubbing Results - Laboratory Findings CBC and BMP: 07/02/19 08:37 07/02/19 08:37 PT/INR, D-dimer PT 28.0 Seconds (9.4-12.1) H 07/01/19 12:31 Abnormal lab findings: Abnormal lab results RDW 14.9 % (11.5-14.5) H 07/01/19 12:31 PT 28.0 Seconds (9.4-12.1) H 07/01/19 12:31 APTT 43.6 Seconds (26.0-36.0) H 07/01/19 12:31 Est GFR (Non-Af Amer) 57 (> 60) L 07/01/19 12:31 Glucose 134 mg/dL (70-105) H 07/01/19 12:31 B-Natriuretic Peptide 456 pg/mL (Less than 100) H 07/01/19 12:31 Procalcitonin 0.19 ng/mL (0.00-0.15) H 07/01/19 17:23 - Microbiology Findings Microbiology Findings: Microbiology, Last 48 Hours 07/01/19 13:52 Blood Culture - Preliminary Peripheral Venipuncture Culture is incubating and being continuously monitored for growth. Final report to follow. 07/01/19 13:52 Blood Culture - Preliminary Peripheral Venipuncture Culture is incubating and being continuously monitor ed for growth. Final report to follow. - Clinical Findings Intake & Output: Intake & Output 07/01/19 07/02/19 07/02/19 23:59 07:59 15:59 Intake Total 570 / 1420 Output Total 550 / 550 300 / 300 Balance 20 870 -300 / -300 Weight 84.9 kg 86.4 kg
[2019-07-02 09:08] LABS: Basophils % 0.1 %; Hematocrit 38.4 % (37.5-50.1); Hemoglobin 12.7 g/dL (12.9-16.9); Immature Granulocytes % 0.3 % (0-4); Lymphocytes # 0.6 K/mcL (0.6-4.6); Lymphocytes % 8.4 %; Mean Corpuscular HGB Conc 33.1 g/dL (31.6-35.5); Mean Corpuscular Hemoglobin 29.3 pg (28.0-33.3); Mean Corpuscular Volume 88.7 fL (83.0-100.0); Mean Platelet Volume 10.3 fL (9.4-12.4); Monocytes # 0.2 K/mcL (0.0-1.3); Monocytes % 2.6 %; Neutrophils # 6.1 K/mcL (1.6-8.9); Platelet Count 176 K/mcL (140-400); Red Blood Count 4.33 M/mcL (4.19-5.50); Red Cell Distribution Width 14.5 % (11.5-14.5); Segmented Neutrophils % 88.6 %; White Blood Count 6.9 K/mcL (4.3-11.1)
[2019-07-02 09:28] LABS: BUN/Creatinine Ratio 18 (6-26); Blood Urea Nitrogen 15 mg/dL (8-23); Calcium 8.6 mg/dL (8.6-10.3); Carbon Dioxide 20 mEq/L (23-29); Chloride 107 mEq/L (98-107); Glucose 159 mg/dL (70-105); Osmolality,Calculated 288 (280-300); Sodium 137 mEq/L (136-145); eGFR For African Americans > 60 (> 60); eGFR For Non-African Americans > 60 (> 60)
[2019-07-03 03:09] LABS: Hematocrit 37.4 % (37.5-50.1); Hemoglobin 12.1 g/dL (12.9-16.9)
[2019-07-03] MEDS: methylPREDNISolone 125 MG/2 ML VIAL IVP SCH ×2 (05:05→18:03)
--- NOTE | 2019-07-03 08:26 | Internal Med Progress Note ---
<LiliyaMonica M - Last Filed: 07/03/19 14:23> Hospitalist Progress Note - Encounter Date of Encounter: 07/03/19 - Exam Vitals: Temp Pulse Resp BP Pulse Ox 97.9 F 87 18 123/90 90 07/03/19 12:45 07/03/19 12:45 07/03/19 12:45 07/03/19 12:45 07/03/19 12:45 - Assessment and Plan (1) Hemoptysis Current Visit: Yes Status: Acute (2) Pneumonia Current Visit: Yes Status: Suspected (3) A-fib Current Visit: Yes Status: Chronic (4) CAD (coronary artery disease) Current Visit: No Status: Acute (5) Aortic stenosis Current Visit: No Status: Chronic - Time Spent with Patient Total time spent is greater than 50% in coordination of care (as documented) at patient's floor/unit and/or counseling patient: Internal Medicine: Result - Labs CBC & Chem 7: 07/03/19 02:09 07/02/19 08:37 Labs: Short CBC 07/03/19 Range/Units 02:09 Hgb 12.1 L (12.9-16.9) g/dL Hct 37.4 L (37.5-50.1) % - ABG Interpretation ABG results: PT/INR, D-dimer PT 28.0 Seconds (9.4-12.1) H 07/01/19 12:31 Consult Discharge Plan - Plan Referrals: Genoveva Holt, SAMPLE CARRIER [Primary Care Provider] - - Attending Attestation I examined this patient and my medical decision-making was reviewed with the Resident Physician Dr Barreto. I agree with the documented findings, disposition and treatment plan as described except to the extent set forth below. Mr Mooney is admitted with multi focal pna and hemoptysis awake, family at bedside, hemoptysis significantly reduced thus far this m orning, + cough, denies sob, fevers or chills. no chest pain. + bm last night, normal, mild abd distension today and increased flatus, no abd pain, n/v gen- alert, awake,appears stated age cv- reg rate and rhythm, normal s1,s2, no pitting le edema lungs- poor aeration throughout, worst at bases, + faint exp wheezing, norm resp effort on o2 nc abd- soft, non tender, + midly distended, + bs neuro- AAOx3 Heomptysis likely 2/2 multifocal pna, on AC and DAPT- appears improved, cont DAPT, AC challenge, appreciate pulm input Multifocal pna and COPDE- IV steroids, IV abx, nebs Afib, currently NSR- Xarelto held, AC challenge with hep gtt and observe further dx and plan as noted by resident <Jose Francisco Barreto S - Last Filed: 07/03/19 19:29> Hospitalist Progress Note - Encounter Date of Encounter: 07/03/19 Time of Encounter: 08:25 - Subjective Interval History: Mr Pineda is a pleasant 69 yo male admitted to our service for pneumonia and hemoptysis. He reports feeling much better than at admission. He reports only mild shortness of breath, and states that his hemoptysis is significantly improved. A sputum sample present on his bedside table shows clear phlegm with moderate streaking of brownish red blood, which both the patient and medical student state is significantly improved from yesterday. I told the patient that he appeared to be struggling to breathe slightly more than when I saw him Monday. The patient reports he feels better than Monday, however the present in the room also agrees that he appears to be working harder to breathe He denies chest pain, palpitations, nausea, vomiting, abdominal pain, numbness/tingling/weakness anywhere, any other new problems or complaints. - Exam Vitals: Temp Pulse Resp BP Pulse Ox 98.1 F 73 15 135/82 94 07/03/19 06:33 07/03/19 06:33 07/03/19 06:33 07/03/19 06:33 07/03/19 06:33 Exam: Gen: Awake and alert, no acute distress, well-nourished, well kempt. Nasal cannula in place Head: Normocephalic, atraumatic Eyes: EOMI, no scleral icterus ENT: Mucous membranes moist, no oropharyngeal erythema CV: heart sounds distant, pulses irregularly irregular at approximate rate of 70, no murmurs rubs or gallops appreciated Abd: Soft, nontender to palpation, nondistended, no rebound or guarding. EXT: Grossly intact motor strength in all 4 extremities, no lower extremity edema, no distal cyanosis or pallor Skin: Warm, dry, intact, no rashes or lesions noted Neuro: Cranial nerves II-XII grossly intact, no focal neurologic deficits Psych: normal mood and affect, Answers questions with intact judgment, appropriate insight, and linear thought Pulm: mild wheezing throughout, Hyperpnea without tachypnea present, mildly increased work of breathing with small amount of accessory muscle use compared to my exam on 07/01. No coughing while I was present - Assessment and Plan (1) Multifocal pneumonia Current Visit: Yes Status: Acute Assessment and Plan: Pulmonology's assessment and recommendations of this time are against bronchoscopy Ongoing hemoptysis likely does not represent an active bleed * Anticoagulation trial with heparin GTT * Continue IV steroids Patient subjectively feeling much better Hemoptysis improving * On review of records, it was noted that the patient's home inhalers were not continued. Orders were put in to continue his Symbicort and Singulair * Scheduled and PRN duo nebs ordered * Holding the patient's home Spiriva, as patient being treated with ipratropium in duo nebs * Continue IV vancomycin and Zosyn * Continue oxygen by nasal cannula * Reassess goals for discharge and plans to meet those goals following tomorrow's assessment (2) CAD (coronary artery disease) Current Visit: Yes Status: Chronic Assessment and Plan: Patient rinse chest pain-free at this time * Recent history of PCI with stenting necessitates continuing aspirin and Plavix * Continue to monitor, especially for symptomatic tachycardia given frequency of nebulizer treatments (3) A-fib Current Visit: Yes Status: Chronic Assessment and Plan: Patient irregularly irregular on exam Denies any subjective palpitations * Xarelto being held pending anticoagulation trial today * Continue Coreg DVT Prophylaxis: Aspirin/Plavix/heparin GTT - Summary of Assessment and Plan Summary of Assessment and Plan: * No bronch per pulm * Anticoagulation trial today with heparin GTT * Continue IV ABX * Duo nebs scheduled and when necessary * Home COPD meds * Continue aspirin and Plavix - Time Spent with Patient Total time spent is greater than 50% in coordination of care (as documented) at patient's floor/unit and/or counseling patient: Internal Medicine: Result - Labs CBC & Chem 7: 07/03/19 14:02 07/02/19 08:37 Labs: Short CBC 07/02/19 07/03/19 Range/Units 08:37 02:09 WBC 6.9 (4.3-11.1) K/mcL Hgb 12.7 L 12.1 L (12.9-16.9) g/dL Hct 38.4 37.4 L (37.5-50.1) % Plt Count 176 (140-400) K/mcL Neutrophils # 6.1 (1.6-8.9) K/mcL BMP 07/02/19 08:37 Sodium 137 Potassium 4.0 Chloride 107 Carbon Dioxide 20 L BUN 15 Creatinine 0.85 Glucose 159 H Calcium 8.6 - ABG Interpretation ABG results: PT/INR, D-dimer PT 28.0 Seconds (9.4-12.1) H 07/01/19 12:31 <Monica Lovell M - Last Filed: 07/03/19 14:23> (2) Pneumonia Qualifiers: Pneumonia type: aspiration pneumonia Aspiration pneumonia type: unspecified Laterality: unspecified laterality Lung location: unspecified part of lung Qualified Code(s): J69.0 - Pneumonitis due to inhalation of food and vomit (3) A-fib Qualifiers: Atrial fibrillation type: chronic Qualified Code(s): I48.2 - Chronic atrial fibrillation (4) CAD (coronary artery disease) Qualifiers: Coronary Disease-Associated Artery/Lesion type: [place] artery [place] vs. transplanted heart: [place] heart Associated angina: without angina Qualified Code(s): I25.10 - Atherosclerotic heart disease of [place] coronary artery without angina pectoris (5) Aortic stenosis Qualifiers: Cardiac valve disease etiology: etiology unspecified Qualified Code(s): I35.0 - Nonrheumatic aortic (valve) stenosis <Jose Francisco Barreto S - Last Filed: 07/03/19 19:29> (2) CAD (coronary artery disease) Qualifiers: Coronary Disease-Associated Artery/Lesion type: [place] artery [place] vs. transplanted heart: [place] heart Associated angina: without angina Qualified Code(s): I25.10 - Atherosclerotic heart disease of [place] coronary artery without angina pectoris (3) A-fib Qualifiers: Atrial fibrillation type: chronic Qualified Code(s): I48.2 - Chronic atrial fibrillation
[2019-07-03] MEDS: Piperacillin/Tazobactam 3.375 GM in 0.9 % Sodium Chloride Mini Bag 100 ML IVPB SCH ×2 (08:59→18:04)
[2019-07-03] MEDS: Aspirin 81 MG TAB.CHEW PO SCH (09:39)
[2019-07-03] MEDS ORDERED: Ipratropium/Albuterol Neb 3 ML IH PRN (13:28)
[2019-07-03] MEDS ORDERED: Heparin 25,000 UNIT/250 ML D5W 25,000 UNIT/250 ML IV.SOLN IVC SCH (13:30)
--- NOTE | 2019-07-03 13:30 | Pulmonology Progress Note ---
<ChidiCaleb M - Last Filed: 07/03/19 13:43> Date of Encounter: 07/03/19 Time of Encounter: 09:00 Assessment and Plan (1) Pneumonia Current Visit: Yes Status: Suspected Patient presents with several day history of progressively worsening cough with increasing sputum production Patient did have recent hospitalization roughly 2 wks ago for stent placement Denies Fevers/Chills, admits to mild dyspnea mostly on exertion and now hemoptys is starting roughly 48 hrs ago Patient was noted to be hypoxic in the ED at 88% on RA, according to patient this is his baseline CTA revealed multifocal airspace disease consistent with diagnosis of PNA Procalcitonin was elevated at 0.19 but WBC normal Hemoptysis clearing up, bronchoscopy not necessary at this time Plan: -Continue ABX for HAP -F/U blood cultures -Continue cough suppressant and supplement O2 as needed Qualifiers: Pneumonia type: aspiration pneumonia Aspiration pneumonia type: unspecified Laterality: unspecified laterality Lung location: unspecified part of lung Qualified Code(s): J69.0 - Pneumonitis due to inhalation of food and vomit (2) Hemoptysis Current Visit: Yes Status: Acute Patient does have roughly 48hr history of mild hemoptysis Patient reports 3 episodes of bright red bloody hemoptysis prior to admission Total output today is roughly 10mL of dark red blood mixed with mucous Patient does take DOAC for AFIB and DAPT for recent Stent, these have been held since admission 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, 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 Total smoking history of roughly 35 pack years, quit in 1994 after [place] Patient has baseline structural lung disease with Severe COPD and Asthma overlap Last CT Chest performed in December did not reveal evidence of neoplasm Etiology of Hemoptysis likely 2/2 Multifocal PNA as demonstrated on CT Chest 07/01/19 in setting of DAPT/DOAC Less likely neoplastic process but still significant risk given severe emphasema/Tobacco Abuse/Occupational Exposures Plavix and Xarelto were held 2/2 hemoptysis and in anticipation of Bronch Hemoptysis clearing up currently Plan: -Will continue to monitor for worsening hemoptysis -Bronchoscopy not currently indicated, decreasing hemoptysis observed today -Restart Plavix d/t significant risk for stent thrombosis -Recommend challenge with either Heparin gtt or restarting Xarelto while still inpatient to observe for recurrence of bleed -continue cough suppressants -Treat underlying COPD Exacerbation, plan below (3) COPD exacerbation Current Visit: Yes Status: Acute Patient has history of COPD, Severe Appears to be in acute exacerbation Increased sputum production with cough + wheeze on exam Compliant with home inhalers 2L O2 PRN/HS at home Patient does not endorse dyspnea at this time Wheeze no better on exam today Plan: -Azithromycin for Anti-Inflammatory effect +Atypical coverage -Continue IV steroids for 24 hrs -Supplement O2 as needed -Continue bronchodilators (4) Occupational exposure to air contaminants Current Visit: Yes Status: Acute Agent [place] in addition to 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 No new complaints. No events overnight. Patient reports improvement in his hemoptysis. Has had about 10ml sputum collected since yesterday afternoon, less bloody component more normal appearing clear mucous. Denies any dyspnea or worsening wheeze. No CP/Fever/Chills. Objective PUL Vital signs: Last Vital Signs Temp 97.9 F 07/03/19 12:45 Pulse 87 07/03/19 12:45 Resp 18 07/03/19 12:45 BP 123/90 07/03/19 12:45 Pulse Ox 90 07/03/19 12:45 Gen: Alert, oriented, NAD, vital stable. Head: atruamatic normocephalic Eyes: anicteric sclera, moist conjunctive, EOMI ENT: Mucous Membranes Moist Neck: no JVD, no lymphadenopathy, trachea midline CV: RRR, no murmurs gallops rubs, distant heart sounds though Resp: Wheezing audible mostly in the bilateral bases, no rales or rhonchi, non- labored breathing, diminished sounds in bilateral upper lobes Ext: no peripheral edema, no rashes, no cyanosis or clubbing Results - Laboratory Findings CBC and BMP: 07/03/19 02:09 07/02/19 08:37 PT/INR, D-dimer PT 28.0 Seconds (9.4-12.1) H 07/01/19 12:31 Abnormal lab findings: Abnormal lab results Hgb 12.1 g/dL (12.9-16.9) L 07/03/19 02:09 Hct 37.4 % (37.5-50.1) L 07/03/19 02:09 RDW 14.9 % (11.5-14.5) H 07/01/19 12:31 PT 28.0 Seconds (9.4-12.1) H 07/01/19 12:31 APTT 43.6 Seconds (26.0-36.0) H 07/01/19 12:31 Carbon Dioxide 20 mEq/L (23-29) L 07/02/19 08:37 Est GFR (Non-Af Amer) 57 (> 60) L 07/01/19 12:31 Glucose 159 mg/dL (70-105) H 07/02/19 08:37 B-Natriuretic Peptide 456 pg/mL (Less than 100) H 07/01/19 12:31 Procalcitonin 0.19 ng/mL (0.00-0.15) H 07/01/19 17:23 - Microbiology Findings Microbiology Findings: Microbiology, Last 48 Hours 07/01/19 13:52 Blood Culture - Preliminary Peripheral Venipuncture Culture is incubating and being continuously monitored for growth. Final report to follow. 07/01/19 13:52 Blood Culture - Preliminary Peripheral Venipuncture Culture is incubating and being continuously monitored for growth. Final report to follow. - Clinical Findings Intake & Output: Intake & Output 07/02/19 07/03/19 07/03/19 23:59 07:59 15:59 Intake Total 350 / 450 100 / 100 Balance 350 / -50 100 / 100 Weight 86.6 kg Consult Discharge Plan - Plan Referrals: Genoveva Holt, MECHANICAL OPERATOR [Primary Care Provider] - <Jostin Arrieta - Last Filed: 07/03/19 17:10> Date of Encounter: 07/03/19 Objective PUL Vital signs: Last Vital Signs Temp 98.1 F 07/03/19 15:36 Pulse 72 07/03/19 15:36 Resp 16 07/03/19 15:36 BP 118/78 07/03/19 15:36 Pulse Ox 93 07/03/19 15:36 Results - Laboratory Findings CBC and BMP: 07/03/19 14:02 07/02/19 08:37 PT/INR, D-dimer PT 13.0 Seconds (9.4-12.1) H D 07/03/19 14:02 Abnormal lab findings: Abnormal lab results Hgb 12.1 g/dL (12.9-16.9) L 07/03/19 02:09 Hct 37.4 % (37.5-50.1) L 07/03/19 02:09 RDW 14.8 % (11.5-14.5) H 07/03/19 14:02 PT 13.0 Seconds (9.4-12.1) H D 07/03/19 14:02 APTT 43.6 Seconds (26.0-36.0) H 07/01/19 12:31 Heparin Anti-Xa, Unfract 0.10 IU/mL (0.30-0.70) L 07/03/19 14:02 Carbon Dioxide 20 mEq/L (23-29) L 07/02/19 08:37 Est GFR (Non-Af Amer) 57 (> 60) L 07/01/19 12:31 Glucose 159 mg/dL (70-105) H 07/02/19 08:37 B-Natriuretic Peptide 456 pg/mL (Less than 100) H 07/01/19 12:31 Procalcitonin 0.19 ng/mL (0.00-0.15) H 07/01/19 17:23 - Microbiology Findings Microbiology Findings: Microbiology, Last 48 Hours 07/01/19 13:52 Blood Culture - Preliminary Peripheral Venipuncture Culture is incubating and being continuously monitored for growth. Final report to follow. 07/01/19 13:52 Blood Culture - Preliminary Peripheral Venipuncture Culture is incubating and being continuously monitored for growth. Final report to follow. - Clinical Findings Intake & Output: Intake & Output 07/03/19 07/03/19 07/03/19 07:59 15:59 23:59 Intake Total 100 / 220 120 / 220 Balance 100 / 220 120 / 220 Weight 86.6 kg - Attending Attestation I examined this patient and my medical decision-making was reviewed with the R thierry Physician. I agree with the documented findings, disposition and treatment plan as described except to the extent set forth below. We independently had [id number] contact with the patient Patient seen and examined at bedside Labs, radiology, chart personally reviewed. Impression/Recs: Generally doing much better he had a few episodes of coughing up some dark red clots which is indicative of old blood no evidence of active fresh bleeding. Clinically he is feeling better rate on exam today he has diffuse wheezing and will need to continue IV steroids and increase his bronchodilator regimen for COPD exacerbation. Otherwise okay to restart anticoagulation and antiplatelet therapy while in hospital once monitored for 24 hours he can be discharged safely. He will need of follow-up for CT scan in about 4 weeks.
[2019-07-03] MEDS ORDERED: Simethicone 80 MG TAB.CHEW PO PRN (14:06)
[2019-07-03] MEDS ORDERED: *HR* Heparin 5,000 UNIT/ML VIAL IVP PRN ×2 (14:28)
[2019-07-03 14:32] LABS: Hematocrit 40.6 % (37.5-50.1); Hemoglobin 13.1 g/dL (12.9-16.9); Mean Corpuscular HGB Conc 32.3 g/dL (31.6-35.5); Mean Corpuscular Hemoglobin 29.2 pg (28.0-33.3); Mean Corpuscular Volume 90.6 fL (83.0-100.0); Mean Platelet Volume 10.1 fL (9.4-12.4); Platelet Count 230 K/mcL (140-400); Red Blood Count 4.48 M/mcL (4.19-5.50); Red Cell Distribution Width 14.8 % (11.5-14.5)
[2019-07-03 14:53] LABS: White Blood Count 10.6 K/mcL (4.3-11.1)
[2019-07-03 14:56] LABS: Heparin anti-factor XA UFH 0.1 IU/mL (0.30-0.70)
[2019-07-03] MEDS ORDERED: Aminoglycoside Consult 1 EACH MC ONE (15:02)
[2019-07-03 15:03] LABS: INR 1.1
[2019-07-03] MEDS: Ipratropium/Albuterol Neb 3 ML IH SCH ×3 (15:21→23:04)
[2019-07-03] MEDS: Budesonide/Formoterol 160/4.5 1 PUFF INH IH SCH ×2 (15:21→19:40)
[2019-07-04] MEDS: Piperacillin/Tazobactam 3.375 GM in 0.9 % Sodium Chloride Mini Bag 100 ML IVPB SCH ×4 (00:11→23:28)
[2019-07-04] MEDS: Ipratropium/Albuterol Neb 3 ML IH SCH ×6 (03:42→23:21)
[2019-07-04 04:05] LABS: Hemoglobin 12.5 g/dL (12.9-16.9); Mean Corpuscular HGB Conc 32.9 g/dL (31.6-35.5); Mean Corpuscular Volume 88.2 fL (83.0-100.0); Mean Platelet Volume 9.9 fL (9.4-12.4); Platelet Count 201 K/mcL (140-400); Red Blood Count 4.31 M/mcL (4.19-5.50); Red Cell Distribution Width 14.7 % (11.5-14.5); White Blood Count 8.7 K/mcL (4.3-11.1)
[2019-07-04 04:15] LABS: INR 1.1; Prothrombin Time 12.9 Seconds (9.4-12.1)
[2019-07-04] MEDS: methylPREDNISolone 125 MG/2 ML VIAL IVP SCH ×2 (06:08→17:51)
[2019-07-04] MEDS ORDERED: Tiotropium 18 MCG inhalation IH SCH (07:00)
[2019-07-04] MEDS: Budesonide/Formoterol 160/4.5 1 PUFF INH IH SCH ×2 (07:16→20:48)
--- NOTE | 2019-07-04 08:02 | Discharge Summary ---
Orders not resulted at time of discharge: Pending orders 07/01/19 13:52 Culture,Blood [BC] Stat Date of Encounter: 07/04/19 Time of Encounter: 10:00 - Discharge Diagnosis (1) Multifocal pneumonia Status: Acute (2) CAD (coronary artery disease) Status: Chronic Qualifiers: Coronary Disease-Associated Artery/Lesion type: [place] artery [place] vs. transplanted heart: saxman heart Associated angina: without angina Qualified Code(s): I25.10 - Atherosclerotic heart disease of [place] coronary artery wit hout angina pectoris (3) A-fib Status: Chronic Qualifiers: Atrial fibrillation type: chronic Qualified Code(s): I48.2 - Chronic atrial fibrillation Hospital course: Mr. Pineda is a 69 year old male - Time Spent with Patient Total time spent providing and/or coordinating discharge services: - Discharge Medications Prescriptions: No Action Clopidogrel [Plavix] 75 mg PO DAILY #30 tablet Albuterol Neb [Proventil Neb] 2.5 mg IH Q4-6H PRN PRN Reason: Shortness Of Breath Atorvastatin [Lipitor] 60 mg PO QPM Levothyroxine Sodium 25 mcg PO QAM Carvedilol 12.5 mg PO BID Tamsulosin HCl [Flomax] 0.4 mg PO QPM Finasteride [Proscar] 5 mg PO QAM Rivaroxaban [Xarelto] 20 mg PO QPM Nitroglycerin [Nitrostat] 0.4 mg SL Q5MIN PRN PRN Reason: Chest Pain Cholecalciferol (Vitamin D3) [Vitamin D3] 1,000 unit PO QAM Budesonide/Formoterol 160/4.5 [Symbicort 160/4.5] 2 puff IH BIDR Montelukast [Singulair] 10 mg PO QPM Folic Acid/Multivit-Min/Lutein [Adult Multivitamin Gummies] 1 each PO QAM Aspirin [Lo-Dose Aspirin EC] 81 mg PO QAM Albuterol Sulfate [Proair Hfa] 2 puff IH Q4H PRN PRN Reason: Shortness Of Breath Tiotropium [place] [Spiriva Respimat] 2 puff IH QAM Home Medications: Albuterol Sulfate [Proair Hfa] 2 puff IH Q4H PRN 01/28/19 [History] Aspirin [Lo-Dose Aspirin EC] 81 mg PO QAM 01/28/19 [History] Budesonide/Formoterol 160/4.5 [Symbicort 160/4.5] 2 puff IH BIDR 01/28/19 [History] Cholecalciferol (Vitamin D3) [Vitamin D3] 1,000 unit PO QAM 01/28/19 [History] Finasteride [Proscar] 5 mg PO QAM 01/28/19 [History] Folic Acid/Multivit-Min/Lutein [Adult Multivitamin Gummies] 1 each PO QAM 01/28/19 [History] Montelukast [Singulair] 10 mg PO QPM 01/28/19 [History] Nitroglycerin [Nitrostat] 0.4 mg SL Q5MIN PRN 01/28/19 [History] Rivaroxaban [Xarelto] 20 mg PO QPM 01/28/19 [History] Tamsulosin HCl [Flomax] 0.4 mg PO QPM 01/28/19 [History] Tiotropium [place] [Spiriva Respimat] 2 puff IH QAM 01/28/19 [History] Albuterol Neb [Proventil Neb] 2.5 mg IH Q4-6H PRN 06/08/19 [History] Atorvastatin [Lipitor] 60 mg PO QPM 06/08/19 [History] Clopidogrel [Plavix] 75 mg PO DAILY #30 tablet 06/08/19 [Rx] Levothyroxine Sodium 25 mcg PO QAM 06/08/19 [History] Carvedilol 12.5 mg PO BID 07/02/19 [History] Allergies/Adverse Reactions: Allergy/AdvReac Type Severity Reaction Status Date / Time No Known Allergies Allergy Verified 06/07/19 21:00 Date of admission: 07/03/19 18:03 Primary care physician: Genoveva Holt CNP Consults: 07/01/19 18:53 Consult to Pulmonology [CONS] Routine Consulting Provider: [facility] Reason for Consult: Severe emphysema, Pneumonia Time Notified: 18:55 Call Completed: Yes 07/02/19 04:50 Consult to Belt Builder Helper [CONS] Stat Reason for SW Consult: Patient wishes to speak w/someone regarding his insurance. 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 THIS SHOULD NOT BE BILLED TO HIS [facility] INSURANCE. 07/03/19 09:02 Consult to Nurse Navigator [CONS] Routine Comment: PNEUMONIA - Constitutional Vitals: Temp Pulse Resp BP Pulse Ox 98.1 F 84 14 108/76 91 07/04/19 06:47 07/04/19 06:47 07/04/19 07:17 07/04/19 06:47 07/04/19 07:17 - Patient Status Condition: Fair - Discharge Instructions Follow Up With: Genoveva Holt, FINANCIAL COACH [Primary Care Provider] -
[2019-07-04] MEDS: Aspirin 81 MG TAB.CHEW PO SCH (08:17)
--- NOTE | 2019-07-04 09:01 | Pulmonology Progress Note ---
<Chidi,Caleb M - Last Filed: 07/04/19 15:40> Date of Encounter: 07/04/19 Time of Encounter: 09:00 Assessment and Plan (1) Pneumonia Current Visit: Yes Status: Suspected Patient presents with several day history of progressively worsening cough with increasing sputum production Patient did have recent hospitalization roughly 2 wks ago for stent placement Denies Fevers/Chills, admits to mild dyspnea mostly on exertion and now hemoptys is starting roughly 48 hrs ago Patient was noted to be hypoxic in the ED at 88% on RA, according to patient this is his baseline CTA revealed multifocal airspace disease consistent with diagnosis of PNA Procalcitonin was elevated at 0.19 but WBC normal Hemoptysis clearing up, bronchoscopy not necessary at this time Plan: -Continue ABX -F/U blood cultures, NGTD -Continue cough suppressant and supplement O2 as needed -Patient is currently at baseline O2 requirement -Follow up outpatient for resolution, rpt CT 4wks Qualifiers: Pneumonia type: aspiration pneumonia Aspiration pneumonia type: unspecified Laterality: unspecified laterality Lung location: unspecified part of lung Qualified Code(s): J69.0 - Pneumonitis due to inhalation of food and vomit (2) Hemoptysis Current Visit: Yes Status: Acute Patient does have roughly 48hr history of mild hemoptysis Patient reports 3 episodes of bright red bloody hemoptysis prior to admission Total output today is roughly 10mL of dark red blood mixed with mucous Patient does take DOAC for AFIB and DAPT for recent Stent, these have been held since admission 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, 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 Total smoking history of roughly 35 pack years, quit in 1994 after [place] Patient has baseline structural lung disease with Severe COPD and Asthma overlap Last CT Chest performed in December did not reveal evidence of neoplasm Etiology of Hemoptysis likely 2/2 Multifocal PNA as demonstrated on CT Chest 07/01/19 in setting of DAPT/DOAC Less likely neoplastic process but still significant risk given severe emphasema/Tobacco Abuse/Occupational Exposures Plavix and Xarelto were held 2/2 hemoptysis and in anticipation of Bronch Hemoptysis much improved today after heparin challenge Plan: -F/u outpatient for resolution, rpt CT 4wks -Restart Plavix and Xarelto -continue cough suppressants -Treat underlying COPD Exacerbation, plan below (3) COPD exacerbation Current Visit: Yes Status: Acute Patient has history of COPD, Severe Appears to be in acute exacerbation Increased sputum production with cough + wheeze on exam Compliant with home inhalers 2L O2 PRN/HS at home Patient does not endorse dyspnea at this time Wheeze slightly improved on exam today Plan: -Azithromycin for Anti-Inflammatory effect +Atypical coverage -Continue steroid with taper -Continue bronchodilators -F/u outpatient for resolution (4) Occupational exposure to air contaminants Current Visit: Yes Status: Acute Agent [place] in addition to 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 No new complaints. No events overnight. Patients cough is much improved today. Patient was given a heparin challenge yesterday and has had no return of bright red bloody sputum. Continues to clear dark red clots mixed in with sputum from prior bleed. Total volume of sputum roughly 10mL since yesterday. Patient stable for resuming xarelto and discharging home with close followup outpatient with pulmonology. Objective PUL Vital signs: Last Vital Signs Temp 98.1 F 07/04/19 06:47 Pulse 84 07/04/19 06:47 Resp 14 07/04/19 07:17 BP 108/76 07/04/19 06:47 Pulse Ox 91 07/04/19 07:17 Gen: Alert, oriented, NAD, vital stable. Head: atruamatic normocephalic Eyes: anicteric sclera, moist conjunctive, EOMI ENT: Mucous Membranes Moist Neck: no JVD, no lymphadenopathy, trachea midline CV: RRR, no murmurs gallops rubs, distant heart sounds though Resp: Wheezing audible mostly in the bilateral bases, no rales or rhonchi, non- labored breathing, diminished sounds in bilateral upper lobes Ext: no peripheral edema, no rashes, no cyanosis or clubbing Results - Laboratory Findings CBC and BMP: 07/04/19 03:43 07/04/19 09:34 PT/INR, D-dimer PT 12.9 Seconds (9.4-12.1) H 07/04/19 03:43 Abnormal lab findings: Abnormal lab results Hgb 12.5 g/dL (12.9-16.9) L 07/04/19 03:43 Hct 37.4 % (37.5-50.1) L 07/03/19 02:09 RDW 14.7 % (11.5-14.5) H 07/04/19 03:43 PT 12.9 Seconds (9.4-12.1) H 07/04/19 03:43 APTT 43.6 Seconds (26.0-36.0) H 07/01/19 12:31 Heparin Anti-Xa, Unfract 0.10 IU/mL (0.30-0.70) L 07/03/19 14:02 Carbon Dioxide 20 mEq/L (23-29) L 07/02/19 08:37 Est GFR (Non-Af Amer) 57 (> 60) L 07/01/19 12:31 Glucose 159 mg/dL (70-105) H 07/02/19 08:37 B-Natriuretic Peptide 456 pg/mL (Less than 100) H 07/01/19 12:31 Procalcitonin 0.19 ng/mL (0.00-0.15) H 07/01/19 17:23 - Clinical Findings Intake & Output: Intake & Output 07/03/19 07/04/19 07/04/19 23:59 07:59 15:59 Intake Total 177 / 497 182.6 / 432.6 250 / 432.6 Output Total 300 / 300 Balance 177 / 497 -117.4 / 132.6 250 / 132.6 Weight 86.8 kg Consult Discharge Plan - Plan Referrals: Genoveva Holt, SENIOR CHEMIST [Primary Care Provider] - <Jostin Arrieta - Last Filed: 07/04/19 15:49> Date of Encounter: 07/04/19 Objective PUL Vital signs: Last Vital Signs Temp 97.9 F 07/04/19 10:48 Pulse 95 07/04/19 10:48 Resp 16 07/04/19 11:02 BP 118/77 07/04/19 10:48 Pulse Ox 86 07/04/19 11:02 Results - Laboratory Findings CBC and BMP: 07/04/19 03:43 07/04/19 09:34 PT/INR, D-dimer PT 12.9 Seconds (9.4-12.1) H 07/04/19 03:43 Abnormal lab findings: Abnormal lab results Hgb 12.5 g/dL (12.9-16.9) L 07/04/19 03:43 Hct 37.4 % (37.5-50.1) L 07/03/19 02:09 RDW 14.7 % (11.5-14.5) H 07/04/19 03:43 PT 12.9 Seconds (9.4-12.1) H 07/04/19 03:43 APTT 43.6 Seconds (26.0-36.0) H 07/01/19 12:31 Heparin Anti-Xa, Unfract 0.10 IU/mL (0.30-0.70) L 07/03/19 14:02 Carbon Dioxide 20 mEq/L (23-29) L 07/04/19 09:34 Est GFR (Non-Af Amer) 57 (> 60) L 07/01/19 12:31 Glucose 172 mg/dL (70-105) H 07/04/19 09:34 Calcium 8.5 mg/dL (8.6-10.3) L 07/04/19 09:34 B-Natriuretic Peptide 456 pg/mL (Less than 100) H 07/01/19 12:31 Serum Total Protein 6.2 g/dL (6.4-8.9) L 07/04/19 09:34 Procalcitonin 0.19 ng/mL (0.00-0.15) H 07/01/19 17:23 - Clinical Findings Intake & Output: Intake & Output 07/03/19 07/04/19 07/04/19 23:59 07:59 15:59 Intake Total 177 / 497 182.6 / 587.8 405.2 / 587.8 Output Total 300 / 300 Balance 177 / 497 -117.4 / 287.8 405.2 / 287.8 Weight 86.8 kg - Attending Attestation I examined this patient and my medical decision-making was reviewed with the Resident Physician. I agree with the documented findings, disposition and ida atment plan as described except to the extent set forth below. We independently had [id number] contact with the patient Patient seen and examined at bedside Labs, radiology, chart personally reviewed. Impression/Recs: No further episodes of hemoptysis during heparin challenge. Agree with transition to Xarelto and continue antiplatelet therapy per cardiology recommendations. He will need 8 days of antibiotics total can be de-escalated to oral beta-lactam such as Augmentin. Follow up with pulmonary in 2 weeks and will need repeat CT scan in 4-6 weeks demonstrated resolution of pneumonia Pulmonary will sign off thank you very much for the consultation please call andreia h any questions
[2019-07-04 10:31] LABS: Alanine Aminotransferase 16 Units/L (7-52); Albumin 3.6 g/dL (3.5-5.7); Albumin/Globulin Ratio 1.4 (1.1-2.2); Alkaline Phosphatase 52 Units/L (34-104); Aspartate Amino Transferase 15 Units/L (13-39); BUN/Creatinine Ratio 18 (6-26); Bilirubin,Total 0.8 mg/dL (0.3-1.0); Blood Urea Nitrogen 17 mg/dL (8-23); Calcium 8.5 mg/dL (8.6-10.3); Carbon Dioxide 20 mEq/L (23-29); Chloride 105 mEq/L (98-107); Globulin 2.6 g/dL (2.4-3.5); Glucose 172 mg/dL (70-105); Osmolality,Calculated 288 (280-300); Potassium 4.1 mEq/L (3.5-5.1); Sodium 136 mEq/L (136-145); Total Protein 6.2 g/dL (6.4-8.9); eGFR For African Americans > 60 (> 60); eGFR For Non-African Americans > 60 (> 60)
[2019-07-04] MEDS ORDERED: *HR* Rivaroxaban 10 MG TABLET PO SCH ×2 (11:30→17:00)
--- NOTE | 2019-07-04 13:20 | Internal Med Progress Note ---
<Jose Francisco Barreto S - Last Filed: 07/04/19 13:23> Hospitalist Progress Note - Encounter Date of Encounter: 07/04/19 Time of Encounter: 10:30 - Subjective Interval History: Mr Pineda is 69-year-old male admitted to her service with complaining of hemoptysis and pneumonia, with underlying COPD/emphysema. He reports feeling much better today, and looks more comfortable according to his . He states he had no new bleeding overnight, and has a specimen cup with only a few teaspoons of phlegm mixed with dark reddish brown blood, he states this is all he has coughed up in the last 24 hours. He denies any shortness of breath, when I inquired about his low oxygen saturation, he stated that he has a pulse oximeter home, and that her that device, he is usually between 83 and 90%, though the states he has gotten as high as 97 before. Patient denies chest pain, tightness, shortness of breath, nausea, vomiting, black stool, bloody stool, diarrhea, constipation, headaches, dizziness, blurry vision, double vision, numbness/tingling/weakness anywhere, - Exam Vitals: Temp Pulse Resp BP Pulse Ox 97.9 F 95 16 118/77 86 07/04/19 10:48 07/04/19 10:48 07/04/19 11:02 07/04/19 10:48 07/04/19 11:02 Exam: Gen: Awake and alert, no acute distress, well-nourished, well kempt. Nasal cannula in place at 2L/min. present at bedside Head: Normocephalic, atraumatic Eyes: EOMI, no scleral icterus ENT: Mucous membranes moist, no oropharyngeal erythema CV: heart sounds distant, pulses irregularly irregular at approximate rate of 60, no murmurs rubs or gallops appreciated Abd: Soft, nontender to palpation, nondistended, no rebound or guarding. EXT: Grossly intact motor strength in all 4 extremities, no lower extremity edema, no distal cyanosis or pallor Skin: Warm, dry, intact, no rashes or lesions noted Neuro: Cranial nerves II-XII grossly intact, no focal neurologic deficits Psych: normal mood and affect, Answers questions with intact judgment, appropriate insight, and linear thought Pulm: mild wheezing throughout, Hyperpnea without tachypnea present, mildly increased work of breathing with small amount of accessory muscle use compared to my exam on 07/01. No coughing while I was present. All pulmonary findings were mildly improved from yesterday's exam - Assessment and Plan (1) Multifocal pneumonia Current Visit: Yes Status: Acute Assessment and Plan: Heparin GTT as anticoagulation trial overnight did not induce any new hemoptysis Very small volume of dark clotted blood was coughed up in the last 24 hours Patient's subjective symptoms of dyspnea continue to improve * Continue IV vancomycin and Zosyn * Continue IV steroids * Continue scheduled and PRN nebs, as well as singulair and symbicort * Oxygen by nasal cannula * Holding the patient's home Spiriva, as patient being treated with ipratropium in duo nebs (2) CAD (coronary artery disease) Current Visit: Yes Status: Chronic Assessment and Plan: Patient is chest Pain free, has been chest pain free for the duration of his stay * Recent history of PCI with stenting necessitates continuing aspirin and Plavix * No evidence of tachycardia in response to increase in nebulizer treatments. * Patient and both talking about moving forward with the Planned stent after they are able to get out of the hospital (3) A-fib Current Visit: Yes Status: Chronic Assessment and Plan: Patient irregularly irregular on exam Denies any subjective palpitations Successful anticoagulant trial with heparin GTT overnight * Resume Xarelto * Continue Coreg DVT Prophylaxis: Aspirin/Plavix/Xarelto - Summary of Assessment and Plan Summary of Assessment and Plan: * Continue IV antibiotics * Continue IV steroids * Restart Xarelto * Scheduled and PRN nebs, home COPD Rx's - Time Spent with Patient Total time spent is greater than 50% in coordination of care (as documented) at patient's floor/unit and/or counseling patient: Internal Medicine: Result - Labs CBC & Chem 7: 07/04/19 03:43 07/04/19 09:34 Labs: Short CBC 07/03/19 07/04/19 Range/Units 14:02 03:43 WBC 10.6 D 8.7 (4.3-11.1) K/mcL Hgb 13.1 12.5 L (12.9-16.9) g/dL Hct 40.6 38.0 (37.5-50.1) % Plt Count 230 201 (140-400) K/mcL BMP 07/04/19 09:34 Sodium 136 Potassium 4.1 Chloride 105 Carbon Dioxide 20 L BUN 17 Creatinine 0.94 Glucose 172 H Calcium 8.5 L Liver Function 07/04/19 Range/Units 09:34 Total Bilirubin 0.8 (0.3-1.0) mg/dL AST 15 (13-39) Units/L ALT 16 (7-52) Units/L Alkaline Phosphatase 52 (34-104) Units/L Albumin 3.6 (3.5-5.7) g/dL - ABG Interpretation ABG results: PT/INR, D-dimer PT 12.9 Seconds (9.4-12.1) H 07/04/19 03:43 Consult Discharge Plan - Plan Referrals: Genoveva Holt, ROSIE [Primary Care Provider] - <Monica Lovell - Last Filed: 07/04/19 14:12> Hospitalist Progress Note - Encounter Date of Encounter: 07/04/19 - Exam Vitals: Temp Pulse Resp BP Pulse Ox 97.9 F 95 16 118/77 86 07/04/19 10:48 07/04/19 10:48 07/04/19 11:02 07/04/19 10:48 07/04/19 11:02 - Assessment and Plan (1) Hemoptysis Current Visit: Yes Status: Acute (2) Pneumonia Current Visit: Yes Status: Suspected (3) A-fib Current Visit: Yes Status: Chronic (4) CAD (coronary artery disease) Current Visit: Yes Status: Chronic (5) Aortic stenosis Current Visit: No Status: Chronic - Time Spent with Patient Total time spent is greater than 50% in coordination of care (as documented) at patient's floor/unit and/or counseling patient: Internal Medicine: Result - Labs CBC & Chem 7: 07/04/19 03:43 07/04/19 09:34 Labs: Short CBC 07/03/19 07/04/19 Range/Units 14:02 03:43 WBC 10.6 D 8.7 (4.3-11.1) K/mcL Hgb 13.1 12.5 L (12.9-16.9) g/dL Hct 40.6 38.0 (37.5-50.1) % Plt Count 230 201 (140-400) K/mcL BMP 07/04/19 09:34 Sodium 136 Potassium 4.1 Chloride 105 Carbon Dioxide 20 L BUN 17 Creatinine 0.94 Glucose 172 H Calcium 8.5 L Liver Function 07/04/19 Range/Units 09:34 Total Bilirubin 0.8 (0.3-1.0) mg/dL AST 15 (13-39) Units/L ALT 16 (7-52) Units/L Alkaline Phosphatase 52 (34-104) Units/L Albumin 3.6 (3.5-5.7) g/dL - ABG Interpretation ABG results: PT/INR, D-dimer PT 12.9 Seconds (9.4-12.1) H 07/04/19 03:43 - Attending Attestation I examined this patient and my medical decision-making was reviewed with the Resident Physician Dr Barreto. I agree with the documented findings, disposition and treatment plan as described except to the extent set forth below. Mr Mooney is admitted with multi focal pna and hemoptysis awake, family at bedside, hemoptysis improved overall, even on hep gtt yesterday, no sob, sputum collection at bedside with + sputum with streaks blood no clots, no further abd distension/gas gen- alert, awake,appears stated age cv- reg rate and rhythm, normal s1,s2, no pitting le edema lungs-improved aeration throughout, no wheezing, norm resp effort on room air abd- soft, non tender, non distended, + bs neuro- AAOx3 Heomptysis likely 2/2 multifocal pna, on AC and DAPT- appears improved, cont DAPT, did well with AC challenge, resume xarelto and monitor, appreciate pulm input Multifocal pna and COPDE- IV steroids, IV abx, nebs Afib, currently NSR- AC challenge as above further dx and plan as noted by resident <Jose Francisco Barreto S - Last Filed: 07/04/19 13:23> (2) CAD (coronary artery disease) Qualifiers: Coronary Disease-Associated Artery/Lesion type: [place] artery [place] vs. transplanted heart: [place] heart Associated angina: without angina Qualified Code(s): I25.10 - Atherosclerotic heart disease of [place] coronary artery without angina pectoris (3) A-fib Qualifiers: Atrial fibrillation type: chronic Qualified Code(s): I48.2 - Chronic atrial fibrillation <Monica Lovell M - Last Filed: 07/04/19 14:12> (2) Pneumonia Qualifiers: Pneumonia type: aspiration pneumonia Aspiration pneumonia type: unspecified Laterality: unspecified laterality Lung location: unspecified part of lung Qualified Code(s): J69.0 - Pneumonitis due to inhalation of food and vomit (3) A-fib Qualifiers: Atrial fibrillation type: chronic Qualified Code(s): I48.2 - Chronic atrial fibrillation (4) CAD (coronary artery disease) Qualifiers: Coronary Disease-Associated Artery/Lesion type: [place] artery [place] vs. transplanted heart: [place] heart Associated angina: without angina Qualified Code(s): I25.10 - Atherosclerotic heart disease of [place] coronary artery without angina pectoris (5) Aortic stenosis Qualifiers: Cardiac valve disease etiology: etiology unspecified Qualified Code(s): I35.0 - Nonrheumatic aortic (valve) stenosis
[2019-07-05] MEDS: Ipratropium/Albuterol Neb 3 ML IH SCH ×3 (03:42→11:22)
[2019-07-05 05:00] LABS: Basophils # 0.1 K/mcL (0.0-0.2); Basophils % 0.7 %; Hematocrit 39.1 % (37.5-50.1); Hemoglobin 12.8 g/dL (12.9-16.9); Immature Granulocytes % 3.4 % (0-4); Lymphocytes # 0.9 K/mcL (0.6-4.6); Mean Corpuscular HGB Conc 32.7 g/dL (31.6-35.5); Mean Corpuscular Hemoglobin 28.8 pg (28.0-33.3); Mean Corpuscular Volume 87.9 fL (83.0-100.0); Mean Platelet Volume 9.9 fL (9.4-12.4); Monocytes # 0.6 K/mcL (0.0-1.3); Monocytes % 7.6 %; Neutrophils # 5.8 K/mcL (1.6-8.9); Platelet Count 197 K/mcL (140-400); Red Blood Count 4.45 M/mcL (4.19-5.50); Red Cell Distribution Width 14.5 % (11.5-14.5); Segmented Neutrophils % 76.3 %; White Blood Count 7.6 K/mcL (4.3-11.1)
[2019-07-05 05:06] LABS: INR 1.2; Prothrombin Time 13.8 Seconds (9.4-12.1)
[2019-07-05 05:19] LABS: BUN/Creatinine Ratio 22 (6-26); Blood Urea Nitrogen 20 mg/dL (8-23); Calcium 8.2 mg/dL (8.6-10.3); Carbon Dioxide 22 mEq/L (23-29); Chloride 106 mEq/L (98-107); Glucose 121 mg/dL (70-105); Osmolality,Calculated 292 (280-300); Sodium 139 mEq/L (136-145); eGFR For African Americans > 60 (> 60); eGFR For Non-African Americans > 60 (> 60)
[2019-07-05] MEDS: methylPREDNISolone 125 MG/2 ML VIAL IVP SCH (05:35)
[2019-07-05] MEDS: Budesonide/Formoterol 160/4.5 1 PUFF INH IH SCH (07:16)
[2019-07-05] MEDS: Piperacillin/Tazobactam 3.375 GM in 0.9 % Sodium Chloride Mini Bag 100 ML IVPB SCH (08:23)
[2019-07-05] MEDS: Aspirin 81 MG TAB.CHEW PO SCH (08:27)
--- NOTE | 2019-07-05 10:01 | Discharge Summary ---
<Monica Lovell - Last Filed: 07/05/19 14:11> Orders not resulted at time of discharge: Pending orders 07/01/19 13:52 Culture,Blood [BC] Stat Date of Encounter: 07/05/19 - Discharge Diagnosis (1) Hemoptysis Status: Acute (2) Pneumonia Status: Suspected Qualifiers: Pneumonia type: aspiration pneumonia Aspiration pneumonia type: unspecified Laterality: unspecified laterality Lung location: unspecified part of lung Qualified Code(s): J69.0 - Pneumonitis due to inhalation of food and vomit (3) A-fib Status: Chronic Qualifiers: Atrial fibrillation type: chronic Qualified Code(s): I48.2 - Chronic atrial fibrillation (4) CAD (coronary artery disease) Status: Chronic Qualifiers: Coronary Disease-Associated Artery/Lesion type: [place] artery [place] vs. transplanted heart: [place] heart Associated angina: without angina Qualified Code(s): I25.10 - Atherosclerotic heart disease of [place] coronary artery without angina pectoris (5) Aortic stenosis Status: Chronic Qualifiers: Cardiac valve disease etiology: etiology unspecified Qualified Code(s): I35.0 - Nonrheumatic aortic (valve) stenosis Hospital course: Mr. Pineda is a 69 year old male - Time Spent with Patient Total time spent providing and/or coordinating discharge services: - Discharge Medications Prescriptions: New PredniSONE [Deltasone] See Taper PO TAPER 12 Days #30 tablet GuaiFENesin/Codeine [ROBITUSSIN w/CODEINE] 10 ml PO Q6HR PRN 5 Days #200 ml PRN Reason: Cough Amoxicillin/Clavulanate [Augmentin] 875 mg PO BIDWM 4 Days #8 tablet Continued Clopidogrel [Plavix] 75 mg PO DAILY #30 tablet Albuterol Neb [Proventil Neb] 2.5 mg IH Q4-6H PRN PRN Reason: Shortness Of Breath Atorvastatin [Lipitor] 60 mg PO QPM Levothyroxine Sodium 25 mcg PO QAM Carvedilol 12.5 mg PO BID Tamsulosin HCl [Flomax] 0.4 mg PO QPM Finasteride [Proscar] 5 mg PO QAM Rivaroxaban [Xarelto] 20 mg PO QPM Nitroglycerin [Nitrostat] 0.4 mg SL Q5MIN PRN PRN Reason: Chest Pain Cholecalciferol (Vitamin D3) [Vitamin D3] 1,000 unit PO QAM Budesonide/Formoterol 160/4.5 [Symbicort 160/4.5] 2 puff IH BIDR Montelukast [Singulair] 10 mg PO QPM Folic Acid/Multivit-Min/Lutein [Adult Multivitamin Gummies] 1 each PO QAM Aspirin [Lo-Dose Aspirin EC] 81 mg PO QAM Albuterol Sulfate [Proair Hfa] 2 puff IH Q4H PRN PRN Reason: Shortness Of Breath Tiotropium [place] [Spiriva Respimat] 2 puff IH QAM Home Medications: Albuterol Sulfate [Proair Hfa] 2 puff IH Q4H PRN 01/28/19 [History] Aspirin [Lo-Dose Aspirin EC] 81 mg PO QAM 01/28/19 [History] Budesonide/Formoterol 160/4.5 [Symbicort 160/4.5] 2 puff IH BIDR 01/28/19 [History] Cholecalciferol (Vitamin D3) [Vitamin D3] 1,000 unit PO QAM 01/28/19 [History] Finasteride [Proscar] 5 mg PO QAM 01/28/19 [History] Folic Acid/Multivit-Min/Lutein [Adult Multivitamin Gummies] 1 each PO QAM 01/28/19 [History] Montelukast [Singulair] 10 mg PO QPM 01/28/19 [History] Nitroglycerin [Nitrostat] 0.4 mg SL Q5MIN PRN 01/28/19 [History] Rivaroxaban [Xarelto] 20 mg PO QPM 01/28/19 [History] Tamsulosin HCl [Flomax] 0.4 mg PO QPM 01/28/19 [History] Tiotropium [place] [Spiriva Respimat] 2 puff IH QAM 01/28/19 [History] Albuterol Neb [Proventil Neb] 2.5 mg IH Q4-6H PRN 06/08/19 [History] Atorvastatin [Lipitor] 60 mg PO QPM 06/08/19 [History] Clopidogrel [Plavix] 75 mg PO DAILY #30 tablet 06/08/19 [Rx] Levothyroxine Sodium 25 mcg PO QAM 06/08/19 [History] Carvedilol 12.5 mg PO BID 07/02/19 [History] Amoxicillin/Clavulanate [Augmentin] 875 mg PO BIDWM 4 Days #8 tablet 07/05/19 [Rx] GuaiFENesin/Codeine [ROBITUSSIN w/CODEINE] 10 ml PO Q6HR PRN 5 Days #200 ml 07/05/19 [Rx] PredniSONE [Deltasone] See Taper PO TAPER 12 Days #30 tablet 07/05/19 [Rx] Allergies/Adverse Reactions: Allergy/AdvReac Type Severity Reaction Status Date / Time No Known Allergies Allergy Verified 06/07/19 21:00 Date of admission: 07/03/19 18:03 Primary care physician: Genoveva Holt CNP Consults: 07/01/19 18:53 Consult to Pulmonology [CONS] Routine Consulting Provider: [facility] [place] Reason for Consult: Severe emphysema, Pneumonia Time Notified: 18:55 Call Completed: Yes 07/02/19 04:50 Consult to [employer]er [CONS] Stat Reason for SW Consult: Patient wishes to speak w/someone regarding his insurance. 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 THIS SHOULD NOT BE BILLED TO HIS [employer] INSURANCE. 07/03/19 09:02 Consult to Nurse Navigator [CONS] Routine Comment: PNEUMONIA - Constitutional Vitals: Temp Pulse Resp BP Pulse Ox 98.0 F 88 16 121/78 94 07/05/19 10:53 07/05/19 10:53 07/05/19 11:24 07/05/19 10:53 07/05/19 11:24 - Patient Status Disposition: Home, Self-Care Condition: Good Functional capacity at discharge: independent ambulation Overall status at discharge: patient is progressing back to baseline - Discharge Instructions Instructions: Atrial Fibrillation (DC), Chronic Obstructive Pulmonary Disease (DC), Pneumonia (DC) Follow Up With: Genoveva Holt CNP [Primary Care Provider] - 07/10/19 8:00 am () Jostin Arrieta MD [Partnered Physician] - (Office will call with date and time of appointment. ) - Diet and Activity Activity: increase activity as tolerated Diet: advance to your usual diet - Attending Attestation I examined this patient and my medical decision-making was reviewed with the Resident Physician Dr Barreto. I agree with the documented findings, disposition and treatment plan as described except to the extent set forth below. Mr Mooney is admitted with multi focal pna and hemoptysis. He is medically stable for dc to home awake, family at bedside, feeling great, no sob, cough improving, was coughing hard when first woke up with blood tinged sputum, further sputum today yellow. discussed dc plan in detail and answered all questions. gen- alert, awake,appears stated age cv- reg rate and rhythm, normal s1,s2 lungs-improved aeration throughout, no wheezing, norm resp effort on room air neuro- AAOx3 Hemoptysis most likely 2/2 multifocal pna, on AC and DAPT- improved, cont DAPT and AC as doing well, fu w pulm and outpt repeat ct in 4 weeks Multifocal pna and COPDE- outpt steroid taper, cont home o2 and nebs, augmentin to complete course Afib, currently NSR- AC further dx and plan as noted by resident time spent on dc 40 min <Jose Francisco Barreto S - Last Filed: 07/05/19 19:42> - NOTES TO OUTPATIENT PROVIDER Notes to Outpatient Provider: Mr. Pineda was admitted to the hospital with hemoptysis and pneumonia. he requires follo-up with Dr Arrieta and PCP. Rx'd 4 days of augmentin to complete 8 day course. Rx'd steroid taper Orders not resulted at time of discharge: Pending orders 07/01/19 13:52 Culture,Blood [] Stat Date of Encounter: 07/05/19 Time of Encounter: 10:01 - Discharge Diagnosis (1) Multifocal pneumonia Priority: Primary Status: Acute Assessment and Plan: Patient feels much better, reports he is almost back to baseline * Augmentin by mouth as an outpatient to total 8 day course of antibiotics * Referral to pulmonology for 2 weeks after discharge * Oral steroid taper prescribed, and explained in person to the patient (2) CAD (coronary artery disease) Priority: Secondary Status: Chronic Assessment and Plan: Stable, no chest pain * Continue aspirin and Plavix * Continue all other meds Qualifiers: Coronary Disease-Associated Artery/Lesion type: [place] artery [place] vs. transplanted heart: [place] heart Associated angina: without angina Qualified Code(s): I25.10 - Atherosclerotic heart disease of [place] coronary artery without angina pectoris (3) A-fib Priority: Secondary Status: Chronic Assessment and Plan: Sputum free of any fresh blood Single episode of sputum mixed with clotted blood in the last 24 hours * Xarelto resumed before discharge * continue xarelto and coreg as outpatient Qualifiers: Atrial fibrillation type: chronic Qualified Code(s): I48.2 - Chronic atrial fibrillation Hospital course: Mr. Pineda is a 69 year old male with past medical history of A. fib, coronary artery disease, emphysema, stent 2 weeks ago admitted to our service with hemoptysis and pneumonia. His pneumonia responded well to IV vancomycin and Zosyn, as well as IV steroids, and nebulizer treatments. His hemoptysis improved steadily from the time of admission to discharge. In the 24 hours preceding discharge, patient had one episode of production of a small amount of mucus mixed with clotted blood. Pulmonology was consults with early in the patient's course, and assisted in decisions regarding the patient's anticoagulation and antiplatelet therapies. A spirin and Plavix were continued throughout the stay, but Xarelto was held initially, and restarted after a successful anticoagulant trial with heparin GTT. Per recommendations of pulmonology, patient will follow-up with their office 2 weeks after discharge Discharge discussed with: patient - Time Spent with Patient Total time spent providing and/or coordinating discharge services: Date of admission: 07/03/19 18:03 Primary care physician: Genoveva Holt CNP Consults: 07/01/19 18:53 Consult to Pulmonology [CONS] Routine Consulting Provider: [facility] [place] Reason for Consult: Severe emphysema, Pneumonia Time Notified: 18:55 Call Completed: Yes 07/02/19 04:50 Consult to [employer]er [CONS] Stat Reason for SW Consult: Patient wishes to speak w/someone regarding his insurance. 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 THIS SHOULD NOT BE BILLED TO HIS [employer] INSURANCE. 07/03/19 09:02 Consult to Nurse Navigator [CONS] Routine Comment: PNEUMONIA Discharging clinician: Jose Francisco Barreto Anticipated date of discharge: 07/05/19 - Constitutional Vitals: Temp Pulse Resp BP Pulse Ox 97.9 F 87 16 138/86 90 07/05/19 06:52 07/05/19 06:52 07/05/19 07:18 07/05/19 06:52 07/05/19 07:18 Exam: Gen: Awake and alert, no acute distress, well-nourished, well kempt. Nasal cannula in place at 2L/min. present at bedside Head: Normocephalic, atraumatic Eyes: EOMI, no scleral icterus ENT: Mucous membranes moist, no oropharyngeal erythema CV: heart sounds distant, pulses seemingly regular today at approximate rate of 60, no murmurs rubs or gallops appreciated Abd: Soft, nontender to palpation, nondistended, no rebound or guarding. EXT: Grossly intact motor strength in all 4 extremities, no lower extremity edema, no distal cyanosis or pallor Skin: Warm, dry, intact, no rashes or lesions noted Neuro: Cranial nerves II-XII grossly intact, no focal neurologic deficits Psych: normal mood and affect, Answers questions with intact judgment, appropriate insight, and linear thought Pulm: CTAB, Hyperpnea resolved, no cough, no increased work of breathing, no wheezing or rhonchi noted
[2019-07-05 10:54] VITALS: BP 121/78
[2019-07-05] MEDS ORDERED: *HR* Rivaroxaban 10 MG TABLET PO SCH (17:00)
== END 2019-07-05 15:03 | disposition home or self-care (01) | DRG 178 ==
LOC: EMEROOARM 12:09 → 3BNU 12:09 → SUATTDRO 16:04 → 3BNU 16:36
PROVIDERS: ADMIT Internal Medicine; ATTEND Internal Medicine

== ENCOUNTER 2019-08-14 10:51 | Observation (INO) ==
[2019-08-14] MEDS ORDERED: 0.9 % Sodium Chloride 1,000 ML IVC SCH (11:15)
[2019-08-14] MEDS ORDERED: Nitroglycerin 1,000 MCG/10 ML VIAL IV ONE (12:05)
[2019-08-14] MEDS ORDERED: Tirofiban 12.5 MG/250ML 12.5 MG/250 ML BAG ONE (12:05)
[2019-08-14] MEDS ORDERED: 0.9 % Sodium Chloride 1,000 ML ONE ×3 (12:05→13:52)
[2019-08-14] MEDS ORDERED: Heparin 1,000 UNITS/500 mL 500 ML ONE (12:05)
[2019-08-14] MEDS ORDERED: *HR* Heparin 10,000 UNIT/10 ML VIAL ONE ×2 (12:05→12:54)
[2019-08-14] MEDS ORDERED: ISOVUE-370 200 ML INFUS..BTL ONE ×3 (12:05→14:14)
[2019-08-14] MEDS ORDERED: Verapamil 5 MG/2 ML VIAL ONE (12:53)
[2019-08-14] MEDS ORDERED: Nitroglycerin 25 MG/250 ML INFUS..BTL IVC ONE (12:54)
[2019-08-14] MEDS ORDERED: *HR* FentaNYL (PF) 100 MCG/2 ML VIAL ONE (13:07)
[2019-08-14] MEDS ORDERED: *HR* Midazolam HCl 2 MG/2 ML VIAL ONE (13:07)
[2019-08-14] MEDS ORDERED: Nitroglycerin 0.4 MG TAB.SUBL SL PRN (17:37)
[2019-08-14] MEDS ORDERED: Tirofiban 12.5 MG/250ML 12.5 MG/250 ML BAG IVC SCH (17:45)
[2019-08-14] MEDS: Budesonide/Formoterol 160/4.5 1 PUFF INH IH SCH (20:32)
[2019-08-14] MEDS ORDERED: Albuterol 2.5 MG/3 ML NEBULIZER IH PRN (22:00)
[2019-08-15 06:34] LABS: Hemoglobin 11.4 g/dL (12.9-16.9)
[2019-08-15 06:55] LABS: BUN/Creatinine Ratio 12 (6-26); Blood Urea Nitrogen 10 mg/dL (8-23); eGFR For African Americans > 60 (> 60); eGFR For Non-African Americans > 60 (> 60)
[2019-08-15] MEDS: Finasteride 5 MG TABLET PO SCH (07:15)
[2019-08-15] MEDS: Aspirin 81 MG TAB.CHEW PO SCH (07:15)
[2019-08-15] MEDS: Multivit/Ca/Min/Fe/FA 1 TAB TABLET PO SCH (07:15)
[2019-08-15] MEDS: Cholecalciferol (D-3) 1,000 UNIT (25MCG) TABLET PO SCH (07:16)
[2019-08-15] MEDS: Levothyroxine 25 MCG TABLET PO SCH (09:31)
[2019-08-15] MEDS ORDERED: Furosemide 20 MG/2 ML VIAL IVP ONE (10:27)
[2019-08-15] MEDS: Budesonide/Formoterol 160/4.5 1 PUFF INH IH SCH ×2 (10:33→22:13)
[2019-08-15] MEDS: Tiotropium 18 MCG inhalation IH SCH (10:33)
[2019-08-15 11:28] LABS: Immature Granulocytes % 0.5 % (0-4)
[2019-08-15 11:33] LABS: Basophils % 0.4 %; Eosinophils % 0.1 %; Hematocrit 35.8 % (37.5-50.1); Hemoglobin 11.7 g/dL (12.9-16.9); Immature Platelets 1.8 % (1.1-6.1); Lymphocytes # 1.2 K/mcL (0.6-4.6); Lymphocytes % 14.7 %; Mean Corpuscular HGB Conc 32.7 g/dL (31.6-35.5); Mean Corpuscular Hemoglobin 28.5 pg (28.0-33.3); Mean Corpuscular Volume 87.3 fL (83.0-100.0); Mean Platelet Volume 9.7 fL (9.4-12.4); Monocytes # 0.9 K/mcL (0.0-1.3); Neutrophils # 5.8 K/mcL (1.6-8.9); Platelet Count 186 K/mcL (140-400); Segmented Neutrophils % 73.3 %; White Blood Count 7.9 K/mcL (4.3-11.1)
[2019-08-15 11:54] LABS: Platelet Estimate Normal (Normal)
[2019-08-16] MEDS: Levothyroxine 25 MCG TABLET PO SCH (06:24)
[2019-08-16] MEDS: Budesonide/Formoterol 160/4.5 1 PUFF INH IH SCH (07:15)
[2019-08-16] MEDS: Tiotropium 18 MCG inhalation IH SCH (07:15)
[2019-08-16] MEDS ORDERED: Albuterol 2.5 MG/3 ML NEBULIZER IH PRN (07:47)
[2019-08-16] MEDS ORDERED: Furosemide 20 MG/2 ML VIAL IVP ONE (08:18)
[2019-08-16] MEDS: Multivit/Ca/Min/Fe/FA 1 TAB TABLET PO SCH (08:26)
[2019-08-16] MEDS: Aspirin 81 MG TAB.CHEW PO SCH (08:26)
[2019-08-16] MEDS: Cholecalciferol (D-3) 1,000 UNIT (25MCG) TABLET PO SCH (08:26)
[2019-08-16] MEDS: Finasteride 5 MG TABLET PO SCH (08:26)
[2019-08-16 08:57] LABS: Hematocrit 36.9 % (37.5-50.1); Hemoglobin 11.9 g/dL (12.9-16.9); Mean Corpuscular HGB Conc 32.2 g/dL (31.6-35.5); Mean Corpuscular Hemoglobin 28.3 pg (28.0-33.3); Mean Corpuscular Volume 87.6 fL (83.0-100.0); Mean Platelet Volume 9.8 fL (9.4-12.4); Platelet Count 195 K/mcL (140-400); Red Blood Count 4.21 M/mcL (4.19-5.50)
[2019-08-16 09:17] LABS: BUN/Creatinine Ratio 12 (6-26); Blood Urea Nitrogen 12 mg/dL (8-23); Calcium 8.7 mg/dL (8.6-10.3); Carbon Dioxide 23 mEq/L (23-29); Chloride 106 mEq/L (98-107); Glucose 129 mg/dL (70-105); Osmolality,Calculated 285 (280-300); Potassium 3.9 mEq/L (3.5-5.1); Sodium 137 mEq/L (136-145); eGFR For African Americans > 60 (> 60); eGFR For Non-African Americans > 60 (> 60)
[2019-08-16 10:47] VITALS: BP 107/76
== END 2019-08-16 14:28 | disposition home or self-care (01) ==
LOC: 2ANU 10:51 → INVDIALAB 10:51 → 2NNU 14:47 → 2ANU 08-15 14:41
PROVIDERS: ADMIT Internal Medicine Cardiovascular Disease; ATTEND Internal Medicine Cardiovascular Disease